=== PATIENT | female | born 1985 | race African-American/Black ===

== ENCOUNTER 2023-10-18 08:32 | Outpatient (REF) | payer MEDICARE, MEDICAID, SELFPAY ==
--- NOTE | 2023-10-18 08:42 | ECG_ITS ---
Test Reason : med management Blood Pressure : / mmHG Vent. Rate : 086 BPM Atrial Rate : 086 BPM P-R Int : 160 ms QRS Dur : 080 ms QT Int : 376 ms P-R-T Axes : 054 015 020 degrees QTc Int : 449 ms Normal sinus rhythm Normal ECG No previous ECGs available Referred By: Karis Gross Electronically Signed By:TONI QURESHI MD
[2023-10-18 09:04] LABS: Basophils Percent Auto 0.5 % (0-2); Eosinophils Absolute Auto 0.1 X10*3/uL (0.0-0.4); Eosinophils Percent Auto 1.3 % (0-4); Hematocrit 39.3 % (37.0-47.0); Hemoglobin 13.6 g/dl (12.0-16.0); Imm Gran Abs Auto 0.01 X10*3/uL (0.00-0.03); Imm Gran Pct Auto 0.1 % (0.0-0.4); Lymphocytes Absolute Auto 5.1 X10*3/uL (1.2-4.9); Lymphocytes Percent Auto 65.3 % (20-40); MANUAL DIFF FLAG SCAN; Mean Corpuscular HGB Conc 34.6 g/dl (31.0-35.0); Mean Corpuscular Hemoglobin 32.1 pg (27.0-33.0); Mean Corpuscular Volume 92.7 fL (80.0-98.0); Mean Platelet Volume 10.6 fL (9.4-12.3); Monocytes Absolute Auto 0.6 X10*3/uL (0.1-1.2); Neutrophils Absolute Auto 1.9 x10*3/uL (2.0-8.3); Neutrophils Percent Auto 24.8 % (45-73); Platelet Count 230 X10*3/uL (160-400); Red Blood Count 4.24 X10*6/uL (4.20-5.50); Red Cell Distribution Width 11.9 % (11.0-16.0); SCAN SMEAR FLAG 1; White Blood Count 7.8 X10*3/uL (4.8-10.8)
[2023-10-18 09:22] LABS: Estimated Average Glucose 128 mg/dL; Hemoglobin A1C 151.1694 umol/L; Hemoglobin A1c % 6.1 % (<6.0)
[2023-10-18 09:42] LABS: Alanine Aminotransferase 48 U/L (0-31); Albumin Level 4.1 g/dL (3.5-5.0); Alkaline Phosphatase 42 U/L (39-117); Anion Gap 12 (12-20); Aspartate Amino Transferase 32 U/L (5-31); Bilirubin Total 0.3 mg/dL (0.0-1.0); Blood Urea Nitrogen 13 mg/dL (9-16); Calcium 9.4 mg/dL (8.4-10.2); Carbon Dioxide 25 mmol/L (22-29); Chloride 102 mmol/L (96-108); Cholesterol 182 mg/dL (<200); Estimated Glomerular Filt Rate > 60; Glucose Fasting 130 mg/dL (60-99); HDL Cholesterol 46 mg/dL (>40); LDL Cholesterol Calculated 124 mg/dL (<100); Magnesium 1.8 mg/dL (1.6-2.6); Potassium 4.2 mmol/L (3.3-5.1); Sodium 135 mmol/L (135-145); Total Protein 7.6 g/dL (6.5-8.0); Triglycerides 62 mg/dL (<150)
[2023-10-18 09:47] LABS: SLIDE REVIEW VERIFIED
[2023-10-18 09:56] LABS: Thyroid Stimulating Hormone 1.42 uIU/mL (0.32-4.0)
[2023-10-18 09:57] LABS: Free T4 (Free Thyroxine) 0.82 ng/dL (0.71-1.85); Vitamin D 25-OH Total 12.7 ng/mL (>30)
[2023-10-18 10:08] LABS: Vitamin B12 361 pg/mL (200-900)
[2023-10-18 11:27] LABS: UPreg QC Valid YES; Urine Pregnancy NEGATIVE (NEGATIVE)
== END 2023-10-18 08:33 | disposition home or self-care (01) ==
LOC: HO.LAB 08:32
PROVIDERS: Visit Provider Psychiatry & Neurology Psychiatry
DX: F32.9 Major depressive disorder, single episode, unspecified (principal); Z51.81 Encounter for therapeutic drug level monitoring; Z79.899 Other long term (current) drug therapy
CPT/HCPCS: 36415; 80053; 80061; 81025; 82306; 82607; 83036; 83735; 84100; 84439; 84443; 85025; 93005

== ENCOUNTER → 2023-10-18 08:42 | Outpatient (BNV) | payer MEDICARE, MEDICAID, SELFPAY | PROVIDERS: Visit Provider Internal Medicine Cardiovascular Disease | DX: Z51.81 Encounter for therapeutic drug level monitoring (principal) | CPT/HCPCS: 93010 ==

== ENCOUNTER → 2023-10-22 11:30 | Outpatient (BNV) | payer MEDICARE, MEDICAID, SELFPAY | PROVIDERS: Visit Provider Psychiatry & Neurology Psychiatry | DX: F42.9 Obsessive-compulsive disorder, unspecified (principal); F45.21 Hypochondriasis; F31.81 Bipolar II disorder; F43.10 Post-traumatic stress disorder, unspecified; F17.200 Nicotine dependence, unspecified, uncomplicated; F10.21 Alcohol dependence, in remission | CPT/HCPCS: 90792; 99211; 99213; 99214; 99499 ==

== ENCOUNTER 2023-11-13 12:00 | Outpatient (RCR) | payer MEDICARE, MEDICAID, SELFPAY ==
[2023-10-17 11:31] VITALS: BP 100/60; PULSE 76; TEMP 37.1
[2023-10-17 13:41] VITALS: BMI 45.0
--- NOTE | 2023-10-17 15:30 | PC.ADMIT ---
Patient is a 37 year old female who was referred to [facility] by [facility] where she stayed for 4 days. Patient reports struggling with severe anxiety with panic attacks, and a long history of ETOH use . Per Integrative Assessment patient has 2 children ages 6 and 7. After having her last child she struggled with depression and at that time had thoughts to jump off a bridge and hurt her children however did not follow through. She denied these thoughts currently. Patient reports she is feeling overwhelmed and struggles with negative thinking and obsessive thoughts. She is alert and oriented x4. Calm and cooperative. Denied SI, HI. Reports some paranoid thoughts that something bad is going to happen or she has cancer or is going to . Patient given a copy of her safety plan if needed. Medications reconciled with patient and patient's pharmacy.
--- NOTE | 2023-10-17 15:57 | HO.PHP ---
Client's case has been opened and reviewed in treatment team.
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
--- NOTE | 2023-10-18 21:53 | HO.PHPPROGNO ---
Subjective Subjective Date of Service: 10/18/23 Reason For Visit: PTSD,anxiety Interim History: Patient seen upon for follow-up on new medications. Patient reports ongoing anxiety, obsessive worry about a multitude of non-specific physical symptoms being potentially serious conditions as well as anticipatory anxiety about potentially developing side effects from medication. She took 100 mg capsule of gabapentin yesterday evening. Says it caused her to feel activated, acutely anxious but was able to recall that we had discussed that this was likely given she was starting on a new medication. She reporteldy took another 100 mg today, and seemed to better tolerate it feels she is a little less anxious than she would have expected to be at the program today. She has not yet started on the propranolol. She notes thinking a lot today...having a lot of different types of thoughts . It's unclear if she is feeling activated from the medication, but more likely she may have felt overstimulated in the program. Hopefully she will settle and be able to tolerate the anticipatory anxiety of starting on a new medication (or at least until the dose is felt to be effective). She denies any alcohol or substance use. Denies urges or cravings. Mood remains depressed, with anxiety all the time . Denies any thoughts of harming self or others. She reports getting her EKG and lab work done earlier this morning. Pending results, will review. She was encouraged to continue with slow titration of PRN as tolerated given obsessive concerns and anticipatory anxiety about potential medication side effects. we are starting at very low doses of gabapentin and propranolol to help better manage panic symptoms, especially since Lamictal will not be therapeutic for several weeks. Patient is aware. For now we will continue lamotrigine titration, pt encouraged to utilize PRN medication. Patient is considering augmentation with NL mood stabilizer, but has considerable apprehension about starting new medications given history of acute dystonia on Latuda. Medication Compliance: Intermittent Side effects from medications: Yes (as noted) Attending Groups: Yes Review of Systems Acute medical concerns: No Mental Status Exam Mental Status Exam Narrative: Alert, oriented, in no acute distress. Casually dressed. No tics, tremors. Cooperative, forthcoming, engaged. Eye contact. Mood anxious. Affect anxious, less labile. Speech normal, talkative without pressured speech. Thought process perseverative without FOI/ANATOLY. Thought content +obsessions relevant to somatic symptoms, health concerns, medication side effects. No SI or HI upon inquiry. No evidence of psychosis. Cognition grossly intact. Sensorium clear. Insight limited, judgment fair but adequate. Diagnostics Vital Signs (24Hr): BMI result Body Mass Index 45.0 Assessment & Plan Assessment & Plan (1) Mood disorder: Status: Acute Code(s): F39 - Unspecified mood [affective] disorder (2) Illness anxiety disorder: Status: Acute Code(s): F45.21 - Hypochondriasis (3) Other specified anxiety disorders: Status: Acute Code(s): F41.8 - Other specified anxiety disorders Assessment and Plan: generalized anxiety, panic attacks, obsessive neurosis r/o OCD spectrum, r/o anxiety related to general medical condition (4) Moderate alcohol use disorder, in early remission: Status: Acute Code(s): F10.21 - Alcohol dependence, in remission (5) PTSD (post-traumatic stress disorder): Status: Acute Code(s): F43.10 - Post-traumatic stress disorder, unspecified Plan continue plan gabapentin 100-200 mg BID propranolol 5-10 mg BID PRN continue lamotrigine titration may consider Abilify, Rexulti or other partial agonist 2nd generation AP to provide more immediate mood stabilziation, given constraints of Lamictal rx (will be at least 8 weeks until therapeutic) other considerations include increasing Lexapro (once mood stabilized) or preferably switching to clomipramine (or fluoxetine, fluvoxamine) or other agent better at targeting obsessive worry Lab work remarkable for HbA1c 6.1, mildly elevated transaminases, vit D deficiency. will start vitamin D weekly supplement Patient educated on: diagnosis, medication risk/benefits and substance abuse Informed Consent: understands Certification I certify that partial hospital treatment is medically necessary due to the symptoms and problems resulting from the patient's mental illness and the failure to treat the patient at the partial hospital level of care would likely result in the patient requiring inpatient psychiatric care which could not be prevented at a less intensive level of care. Total time managing care of this patient today ____ minutes. Discharge Plan Discharge Attending provider: Karis Gross Medications: New gabapentin 100 mg capsule 100 - 200 mg PO BID PRN (Reason: anxiety, agitation) Qty: 30 0RF propranolol 10 mg tablet 10 mg PO BID PRN (Reason: heart racing, anxiety) Qty: 30 0RF lamotrigine 25 mg tablet See Rx Instructions .ROUTE .COMPLEX 30 Days Qty: 80 0RF Rx Instructions: take 2 tablets po daily for 2 weeks, then increase to 3 tablets daily escitalopram oxalate [Lexapro] 10 mg tablet 10 mg PO DAILY 15 Days Qty: 15 0RF ergocalciferol (vitamin D2) [Vitamin D2] 1,250 mcg (50,000 unit) capsule 1,250 mcg PO QWEEK Qty: 10 0RF Continued metformin 500 mg tablet 500 mg PO BID lisinopril-hydrochlorothiazide 20-25 mg tablet 1 tab PO DAILY hydroxyzine HCl 25 mg Tablet 25 mg PO TID PRN (Reason: Anxiety) No Action atorvastatin 20 mg tablet 20 mg PO DAILY thiamine HCl (vitamin B1) [Vitamin B-1] 100 mg Tablet 100 mg PO DAILY lamotrigine 25 mg tablet, chewable dispersible 25 mg PO DAILY folic acid 1 mg Tablet 1 mg PO DAILY pyridoxine (vitamin B6) [Vitamin B-6] 100 mg Tablet 100 mg PO DAILY naproxen 500 mg tablet 500 mg PO BID cholecalciferol (vitamin D3) [Vitamin D3] 25 mcg (1,000 unit) capsule 25 mcg PO DAILY escitalopram oxalate 10 mg tablet 10 mg PO DAILY Stand Alone Forms: Patient Portal Discharge page
--- NOTE | 2023-10-22 21:01 | P.PNPSP_ITS ---
Subjective Subjective Date of Service: 10/22/23 Reason For Visit: PTSD,anxiety Interim History: Patient seen for follow up today. Anticipating discharge tomorrow. Patient reports that her time here was very helpful . She has continued to work part-time while in the program. She will be returning to work [employer] after tomorrow. She reports her mood is good . Denies any depressive symptoms, says her moods are more level, no hopelessness or SI. There hasn't been any episodes of passive SI in over a week. He meets with his outpatient provider monthly, was last seen by provider 2 weeks ago. She reportedly is not needing any refills until then. Her next therapy appointment is next Saturday. Medication Compliance: Yes Side effects from medications: No Attending Groups: Yes Review of Systems Acute medical concerns: No Diagnostics Vital Signs (24Hr): BMI result Body Mass Index 45.0 Assessment & Plan Certification I certify that partial hospital treatment is medically necessary due to the symptoms and problems resulting from the patient's mental illness and the failure to treat the patient at the partial hospital level of care would likely result in the patient requiring inpatient psychiatric care which could not be prevented at a less intensive level of care. Total time managing care of this patient today ____ minutes. Discharge Plan Discharge Attending provider: Karis Gross Medications: New gabapentin 100 mg capsule 100 - 200 mg PO BID PRN (Reason: anxiety, agitation) Qty: 30 0RF propranolol 10 mg tablet 10 mg PO BID PRN (Reason: heart racing, anxiety) Qty: 30 0RF lamotrigine 25 mg tablet See Rx Instructions .ROUTE .COMPLEX 30 Days Qty: 80 0RF Rx Instructions: take 2 tablets po daily for 2 weeks, then increase to 3 tablets daily escitalopram oxalate [Lexapro] 10 mg tablet 10 mg PO DAILY 15 Days Qty: 15 0RF Continued metformin 500 mg tablet 500 mg PO BID lisinopril-hydrochlorothiazide 20-25 mg tablet 1 tab PO DAILY hydroxyzine HCl 25 mg Tablet 25 mg PO TID PRN (Reason: Anxiety) No Action atorvastatin 20 mg tablet 20 mg PO DAILY thiamine HCl (vitamin B1) [Vitamin B-1] 100 mg Tablet 100 mg PO DAILY lamotrigine 25 mg tablet, chewable dispersible 25 mg PO DAILY folic acid 1 mg Tablet 1 mg PO DAILY pyridoxine (vitamin B6) [Vitamin B-6] 100 mg Tablet 100 mg PO DAILY naproxen 500 mg tablet 500 mg PO BID cholecalciferol (vitamin D3) [Vitamin D3] 25 mcg (1,000 unit) capsule 25 mcg PO DAILY escitalopram oxalate 10 mg tablet 10 mg PO DAILY Stand Alone Forms: Patient Portal Discharge page Telehealth Telehealth Location of provider rendering services: other (private office) Location of patient: other ([facility]) Patient Identification confirmed using: Name, : Yes Telehealth method: video Minutes spent on Phone/Video with Pt.: 30
--- NOTE | 2023-10-22 22:05 | P.PNPSP_ITS ---
Subjective Subjective Date of Service: 10/22/23 Reason For Visit: PTSD,anxiety Interim History: Patient requesting to be seen for medication side effects. She reports moving up to Lamictal 50 mg over the weekend, she says she has been questioning herself about whether she can tell if she is having brain fog with the Lamictal at 25 mg. Moving up to 50 mg was making her anxious but she went up on Saturday. She tried taking the gabapentin 100 mg but says it caused her to feel more anxiety. I felt disoriented. I couldn't think, I felt like I was losing my mind. I could feel my heart poudning and pounding... I was about to start screaming . At the time she was on facebook, and says someone tried talking her down to calm down. Upon inquiry she says she is unable to distinguish between the event on Saturday and a panic attack, agrees it is possible it could have been a panic attack given she was experiencing anticipatory anxiety about medications (anticipating any dose change or new medications) however she cold not be reassured. She has not yet tried propranolol due to concerns for her heart even though she says she understands that this should help with some of the anxiety symptoms, specifically heart racing and palpitations. We review her EKG from yesterday which was noted to be completely unremarkable. NSR, VR 89, no abnormalities. She expressed only modest reassurance. Again the propranolol would be helpful and says she will consider trying it this evening. She co ntinued to perseverate on lamotrigine causing brain fog and gabapentin interacting with the Lamictal. She says she is terrified to experience this event again. We discuss her history of panic attacks and that they are chronic and pervasive and likely to continue unless adequately treated. We discuss diagnostically her obsessive anxiety tendencies toward hypochondriasis overlapping with obsessive-compulsive spectrum type disorder. She seems to fully appreciate this construct as descriptive about her experience. We agree to take a slower, lomy-aq-moth approach to medication changes, simplify treatment. Patient is unlikely a good candidate for Lamictal, seeing as she will essentially remain untreated for several weeks/months until dose is therapeutic which will take some time, and unlikely be tolerable given regular dosing increases to get to there. Preferably I would like to start fluvoxamine or clomipramine to target OCD-type obsessive anxiety however she has a history of manic episodes (though not fully appreciated as such given concomiitent alcohol/substance use), nonetheless she has experienced overactivation with increases in her SSRI in the past. Any further increase in Lexapro (vs change to another antidepressant to target obsessive anxiety) would likely warrant proper mood stabilization. This far she is struggling to endure the long titration process for Lamcital, and reportedly has had significant side effects with neuroleptic medications. 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 We reivew her history with Trileptal and seems patient experienced more of the same non- specific panic attack-like symptoms when trialed on Trileptal. She says she was very tired/sedated by the medication, but indicates the dose may have been ?400. We review the Trileptal as a possible mood stabilizer, give we would be starting the dose back at 150 mg, which she seemed open to. She understands there are similar risks with Trileptal as compared to Lamictal, but also appreciates the considerably shorter titration period required for Trileptal to be therapuetic. Medication Compliance: Yes Side effects from medications: No Attending Groups: Yes Review of Systems Acute medical concerns: No Mental Status Exam Mental Status Exam Narrative: Alert, oriented, in no acute distress. Casually dressed in sweats. No tics, tremors. Restless at times, otherwise cooperative, forthcoming. Eye contact. Moo d anxious, affect anxious, labile. Speech mildly pressured but allows for reciprocity. Thought process perseverative without FOI/ANATOLY. Thought content +obsessions relevant to somatic symptoms, health concerns, medication side effects. No SI or HI upon inquiry. No evidence of psychosis. Cognition grossly intact. Sensorium clear. Insight limited, judgment fair but adequate. Diagnostics Vital Signs (24Hr): BMI result Body Mass Index 45.0 Assessment & Plan Assessment & Plan (1) Mood disorder: Status: Acute Code(s): F39 - Unspecified mood [affective] disorder (2) Hypochondriasis: Status: Acute Code(s): F45.21 - Hypochondriasis (3) Generalized anxiety disorder with panic attacks: Status: Acute Code(s): F41.1 - Generalized anxiety disorder; F41.0 - Panic disorder [episodic paroxysmal anxiety] (4) Moderate alcohol use disorder, in early remission: Status: Acute Code(s): F10.21 - Alcohol dependence, in remission Plan will reduce dose of Lamictal to 25 mg/d, plan to taper off, cross titrate onto oxcarbazepine vs ?SGA partial D-agonist/antagonist like Abilify or Rexulti + Cogentin consider further titration w Lexapro (which may be easier) vs TCA specifically clomipramine (or Prozac or Luvox) to target anxiety/OCD sx (clomipramine would be preferred plan however which would take more time and perhaps would further complicate anxiety in the short term) continue to monitor tightly for reassurance and tighter adjustments Patient educated on: diagnosis, medication risk/benefits and substance abuse Informed Consent: understands Certification I certify that partial hospital treatment is medically necessary due to the symptoms and problems resulting from the patient's mental illness and the failure to treat the patient at the partial hospital level of care would likely result in the patient requiring inpatient psychiatric care which could not be prevented at a less intensive level of care. Total time managing care of this patient today _30___ minutes. Discharge Plan Discharge Attending provider: Karis Gross Medications: New gabapentin 100 mg capsule 100 - 200 mg PO BID PRN (Reason: anxiety, agitation) Qty: 30 0RF propranolol 10 mg tablet 10 mg PO BID PRN (Reason: heart racing, anxiety) Qty: 30 0RF lamotrigine 25 mg tablet See Rx Instructions .ROUTE .COMPLEX 30 Days Qty: 80 0RF Rx Instructions: take 2 tablets po daily for 2 weeks, then increase to 3 tablets daily escitalopram oxalate [Lexapro] 10 mg tablet 10 mg PO DAILY 15 Days Qty: 15 0RF Continued metformin 500 mg tablet 500 mg PO BID lisinopril-hydrochlorothiazide 20-25 mg tablet 1 tab PO DAILY hydroxyzine HCl 25 mg Tablet 25 mg PO TID PRN (Reason: Anxiety) No Action atorvastatin 20 mg tablet 20 mg PO DAILY thiamine HCl (vitamin B1) [Vitamin B-1] 100 mg Tablet 100 mg PO DAILY lamotrigine 25 mg tablet, chewable dispersible 25 mg PO DAILY folic acid 1 mg Tablet 1 mg PO DAILY pyridoxine (vitamin B6) [Vitamin B-6] 100 mg Tablet 100 mg PO DAILY naproxen 500 mg tablet 500 mg PO BID cholecalciferol (vitamin D3) [Vitamin D3] 25 mcg (1,000 unit) capsule 25 mcg PO DAILY escitalopram oxalate 10 mg tablet 10 mg PO DAILY Stand Alone Forms: Patient Portal Discharge page Telehealth Telehealth Location of provider rendering services: other (private office) Location of patient: other ([facility]) Patient Identification confirmed using: Name, : Yes Telehealth method: video Minutes spent on Phone/Video with Pt.: 30
--- NOTE | 2023-10-23 14:29 | PC.NURSE ---
Kendall asked to have her blood pressure taken as she stated she did not feel right. Feeling the sensation of a band around her head and head feeling foggy. BP 90/60 P 96. She talked about numerous fears including new medications and being scared she is going to get side effects. She talked about feeling fatigued prior to her menses and not feeling herself. She is with much negative thinking and worrying about things that have not happened including what if she never gets better, or what if she gets psychosis like she did after her last child was born (hx of post psychosis). We talked about staying in the present moment and grounding techniques. We also talked about taking small steps and slowing down her breathing. Reports she did not have a good day on Saturday however stated she has had some good days since being in the program. She plans on visiting with her mom with her children after the program. She reports feeling better after we talked and physical symptoms that she was experiencing prior to seeing me have gone away. She plans on coming to the program tomorrow. Encouraged Kendall to increase her fluid intake.
[2023-10-23 14:45] VITALS: BP 90/60; PULSE 96
[2023-10-24 09:30] VITALS: BP 106/62; PULSE 80
--- NOTE | 2023-10-24 09:30 | PC.NURSE ---
Getarra feeling less anxious this morning. Practicing staying in the present moment which has been helpful . VS BP 106/62 P 80.
--- NOTE | 2023-10-24 20:55 | P.PNPSP_ITS ---
Subjective Subjective Date of Service: 10/24/23 Reason For Visit: PTSD,anxiety Interim History: Patient was seen for follow-up to discuss treatment. Since we decided to hold off from further medication changes last visit and monitor her anxiety without provocation from med changes, patient says she in fact has continued to experience similar somatic symptoms as she had been experiencing when starting on the gabapentin 100 mg, and also when dose of lamictal was increased to 50 mg. She was able to acknowledge perhaps it was her anxiety after all that was causing the symptoms (which were consistent with panic sx bordering on hysteria) which she had been mistakenly attributed to the medications. She continues to relay a considerable amount of anticipatory anxiety about starting on a mood stabilizer, however she has some insight into the nature of her anxiety and hx of mood dysregulation and need for adequate mood stabilization. Despite her apprehension and obsessiveness, she was able to engage effectively with treatment decisions. Her case is complicated by a history of dystonia reported on Latuda. She is uncertain of the dose on the Latuda. Inteerstingly she has been treated on paliperidone and risperidone and did not experience any dystonia or other extrapyramindal symptoms as she can recall. (mostly just concerns for weight gain). We had discussed oxcarbazepine as an option given patient's initial reseervations about revisiting a neuroleptic mood stabilizer, however she agreed to this given concerns about BID dosing with Trileptal potentiating more anxiety, and prefered the once daily dosing of Abilify. More over it would likely be more helpful in targeting intrusive thoughts and obsessions than the Trileptal. For added reassurance, I have filed a script of Balwinder which she could take PRN for any signs of neck/jaw/upper axial stiffness and seemed relieved to have this option. Abilify being a partial dopamine agonist should have a better side effect profile as compared to other medications from that class in potentially provoking a dystonic reaction. She denies any thoughts of harming self or others. She denies any alcohol cravings or urges. Denies any interim = or substance use. Medication Compliance: Yes Side effects from medications: No Attending Groups: Yes Review of Systems Acute medical concerns: No Mental Status Exam Mental Status Exam Narrative: Alert, oriented, in no acute distress. Groomed. Calmer today, restless at times, otherwise cooperative, forthcoming. Eye contact. Mood anxious, affect anxious, less labile. Speech appropriate. Thought process perseverative without FOI/ANATOLY. Thought content +obsessions relevant to somatic symptoms, health concerns, medication side effects. No SI or HI upon inquiry. No evidence of psychosis. Cognition grossly intact. Sensorium clear. Insight limited, judgment fair but adequate. Diagnostics Vital Signs (24Hr): Vital Signs - 24 hr 10/24/23 09:30 Pulse Rate 80 Blood Pressure 106/62 BMI result Body Mass Index 45.0 Assessment & Plan Assessment & Plan (1) Mood disorder: Status: Acute Code(s): F39 - Unspecified mood [affective] disorder (2) Illness anxiety disorder: Status: Acute Code(s): F45.21 - Hypochondriasis (3) Other specified anxiety disorders: Status: Acute Code(s): F41.8 - Other specified anxiety disorders Assessment and Plan: somatic anxiety symptoms, anxiety attacks, generalized anxiety, obsessive neurosis, r/o OCD spectrum (4) Moderate alcohol use disorder, in early remission: Status: Acute Code(s): F10.21 - Alcohol dependence, in remission (5) PTSD (post-traumatic stress disorder): Status: Acute Code(s): F43.10 - Post-traumatic stress disorder, unspecified Plan start Abilify 2 mg qd (may start at 1/2 tablet) will order Cogentin 1 mg qd prn EPS/dystonia (given patient's reported hx and concerns re potential NL side effects) plan to taper off Lamictal (given pt's condition, she is not good candidate for Lamictal due to prolonged titration period when medication is essentially subtherapeutic. at risk for discont/non-compliance due to anxiety related to multiple dose adjustments) continue Lexapro 10 mg qd for now (will either increase dose to 20 mg or consider switching to a more appropriate option such as trial of clomipramine may be more effective, but may not be practical at this point in time, given time constraints of program, and patient limitations in terms of anxiety tolera nce if we make too many med adjustments) Patient educated on: diagnosis, medication risk/benefits and substance abuse Informed Consent: understands Reason for contiued partial hosp. stay Substantial Risk for: inability to function, rapid decompensation and med/psych decompensation Certification I certify that partial hospital treatment is medically necessary due to the symptoms and problems resulting from the patient's mental illness and the failure to treat the patient at the partial hospital level of care would likely result in the patient requiring inpatient psychiatric care which could not be prevented at a less intensive level of care. Total time managing care of this patient today __30__ minutes. Discharge Plan Discharge Attending provider: Karis Gross Medications: New escitalopram oxalate [Lexapro] 10 mg tablet 10 mg PO DAILY 15 Days Qty: 15 0RF ergocalciferol (vitamin D2) [Vitamin D2] 1,250 mcg (50,000 unit) capsule 1,250 mcg PO QWEEK Qty: 10 0RF aripiprazole 2 mg tablet 2 mg PO BEDTIME Qty: 14 0RF benztropine 1 mg tablet 1 mg PO DAILY PRN (Reason: stiffness) Qty: 30 0RF Rx Instructions: as directed Continued metformin 500 mg tablet 500 mg PO BID lisinopril-hydrochlorothiazide 20-25 mg tablet 1 tab PO DAILY hydroxyzine HCl 25 mg Tablet 25 mg PO TID PRN (Reason: Anxiety) Discontinued lamotrigine 25 mg tablet, chewable dispersible 25 mg PO DAILY No Action atorvastatin 20 mg tablet 20 mg PO DAILY thiamine HCl (vitamin B1) [Vitamin B-1] 100 mg Tablet 100 mg PO DAILY folic acid 1 mg Tablet 1 mg PO DAILY pyridoxine (vitamin B6) [Vitamin B-6] 100 mg Tablet 100 mg PO DAILY naproxen 500 mg tablet 500 mg PO BID cholecalciferol (vitamin D3) [Vitamin D3] 25 mcg (1,000 unit) capsule 25 mcg PO DAILY escitalopram oxalate 10 mg tablet 10 mg PO DAILY Stand Alone Forms: Patient Portal Discharge page
--- NOTE | 2023-10-29 09:29 | PC.NURSE ---
Kendall called and stated she would not be at the program today as she has an appointment today for her children. She stated she will be here tomorrow.
--- NOTE | 2023-10-31 16:09 | HO.PHP ---
Financial Reporting Manager met with pt to discuss discharge plan, Kendall expressed anxiety in regards to new symptom of lightheaded upon standing. Afraid it is due to the medication. Pt reported she had a decrease in anxiety and panic attacks this week but the lightheadedness has cause an increase in her anxious fear and has induced panic attacks again. Pt's speech is pressured, difficulty staying focused on the conversation, responding to the worries and anxiety she is ruminating on instead of the questions. Pt did well when educated and reminded of her knowledge, her skills and to stay present. Pt able to redirect and calm with support. Pt expressed interest in the [employer], for added support after post PHP. Information provided. Pt states she will call this week to enroll. Financial Reporting Manager and pt discussed her scheduled discharge date set for tomorrow. Pt feel she needs more time, teletypewriter operator agrees. Pt's concern's and treatment plan discussed in team. Pt's time will be extended until next week.
--- NOTE | 2023-11-01 19:54 | PM.EVENT ---
Event Note Date of Service: 11/01/23 Event Note: Patient was scheduled to see short story writer this past Sunday 10/29 but called out of the program for an appointment, and was unable to be seen. She was scheduled to be seen today 11/01, but again called out sick this morning and was unable to be seen. Time Spent With Patient Time: Total time managing care of this patient today ____ minutes.
--- NOTE | 2023-11-04 20:09 | HO.PHPPROGNO ---
Subjective Subjective Date of Service: 11/04/23 Reason For Visit: PTSD,anxiety Interim History: Patient was able to tolerate increase in dose of ABilify. Still causes considerable anticipatory anxiety with each med change/increase, however she feels perhaps the anxiety is starting to let up a bit because it did not elicit a panic attack, only minimal panic symptoms which she is starting to appreciate as being in fact stemming from her own anxiety, rather than misinterpreting these symptoms and misattributing them to the medication. She says she was able to tolerate these thoughts and foudn she felt okay. In fact she feels a little more optimistic but is still quite obsessive and preoccupied with somatic symptoms and potential side effects. She did not take the propranolol, even though she understood it was to help with racing heart rate. For now she says she will hold off from taking it until she is experiencing palpitations. She shares more detail and in-depth history of intrusive thoughts and obsessions that are highly dystonic in nature, obsessional morbid ruminations which she experienced very prominently peripartum with intrusive thoughts of harming the baby. These thoughts were very distressing and says in fact she was phobic about harm befalling the baby and started to get internalized into intrusive thought process. She gave many other examples of struggles with ego-dystonic obsessional thoughts, no clear ritualistic behavior aside from seeking reassurance from others, which only briefly and temporarily relieves concerns. She reports mood as anxious, denies any manic symptoms, some residual depressive symptoms. Denies any SI ro HI. She returns to discussion about her heart, and why her heart races upon standing, which by all descriptions sounds like normal physiological response to positional change. I explained this mechanism which provided some reassurance. We reviewed definition and symptoms of hypochondriasis and obsessive-type OCD. She strongly agrees with this diagnostic construct and explanation for her internal experience /MH struggles. We discussed natrexone for alcohol recovery, patient denies having any cravings at this time We discussed smoking cessation, patient considering reducing nicotine use Medication Compliance: Yes Side effects from medications: No Attending Groups: Yes Review of Systems Acute medical concerns: No Mental Status Exam Mental Status Exam Narrative: Alert, oriented, in no acute distress. Groomed. Calmer today, restless at times, otherwise cooperative, forthcoming. Eye contact. Mood anxious, affect anxious, less labile. Speech appropriate. Thought process perseverative without FOI/ANATOLY. Thought content +obsessions relevant to somatic symptoms, health concerns, medication side effects. No SI or HI upon inquiry. No evidence of psychosis. Cognition grossly intact. Sensorium clear. Insight limited, judgment fair but adequate. Diagnostics Vital Signs (24Hr): BMI result Body Mass Index 45.0 Assessment & Plan Assessment & Plan (1) Other obsessive-compulsive disorder: Status: Acute Code(s): F42.8 - Other obsessive-compulsive disorder Assessment and Plan: F42.0 Predominently obsessional thoughts or ruminations (2) Illness anxiety disorder: Status: Acute Code(s): F45.21 - Hypochondriasis (3) Mood disorder: Status: Acute Code(s): F39 - Unspecified mood [affective] disorder (4) Other specified anxiety disorders: Status: Acute Code(s): F41.8 - Other specified anxiety disorders Assessment and Plan: obsessive neurosis, somatic anxiety symptoms, panic attacks, generalized anxiety (5) Moderate alcohol use disorder, in early remission: Status: Acute Code(s): F10.21 - Alcohol dependence, in remission (6) Nicotine dependence with current use: Status: Acute Code(s): F17.200 - Nicotine dependence, unspecified, uncomplicated Plan continue Abilify 4 mg/d, will increase to 5 mg tomorrow encouraged patient to take propranolol 10 mg BID (reluctant but is working up to it ) continue Cogentin 1 mg qd PRN EPS sx (patient taking regularly) continue Lexapro 10 mg qd will plan to switch off Lexparo and onto Luvox (once ABilify at 5- 7 mg) to target OCD, other considerations include: TCA/clomipramine - pt declined due to cardiac concerns; Prozac - drug-drug interactions between Abililfy and Prozac increase metformin to 500 mg BID (perhaps will hold off until patient settles on Abilify and med change to Luvox follow-up later in week Patient educated on: diagnosis, medication risk/benefits and substance abuse (nicotine use, alcohol) Informed Consent: understands Certification I certify that partial hospital treatment is medically necessary due to the symptoms and problems resulting from the patient's mental illness and the failure to treat the patient at the partial hospital level of care would likely result in the patient requiring inpatient psychiatric care which could not be prevented at a less intensive level of care. Total time managing care of this patient today ____ minutes. Discharge Plan Discharge Attending provider: Karis Gross Medications: New escitalopram oxalate [Lexapro] 10 mg tablet 10 mg PO DAILY 15 Days Qty: 15 0RF ergocalciferol (vitamin D2) [Vitamin D2] 1,250 mcg (50,000 unit) capsule 1,250 mcg PO QWEEK Qty: 10 0RF benztropine 1 mg tablet 1 mg PO DAILY PRN (Reason: stiffness) Qty: 30 0RF Rx Instructions: as directed aripiprazole 5 mg tablet 5 mg PO BEDTIME 14 Days Qty: 14 0RF benztropine 1 mg tablet 1 mg PO .QHS Qty: 30 0RF escitalopram oxalate 10 mg tablet 10 mg PO DAILY Qty: 20 0RF Continued metformin 500 mg tablet 500 mg PO BID lisinopril-hydrochlorothiazide 20-25 mg tablet 1 tab PO DAILY hydroxyzine HCl 25 mg Tablet 25 mg PO TID PRN (Reason: Anxiety) aripiprazole 2 mg tablet 2 mg PO BEDTIME Qty: 14 0RF Discontinued lamotrigine 25 mg tablet, chewable dispersible 25 mg PO DAILY No Action atorvastatin 20 mg tablet 20 mg PO DAILY thiamine HCl (vitamin B1) [Vitamin B-1] 100 mg Tablet 100 mg PO DAILY folic acid 1 mg Tablet 1 mg PO DAILY pyridoxine (vitamin B6) [Vitamin B-6] 100 mg Tablet 100 mg PO DAILY naproxen 500 mg tablet 500 mg PO BID cholecalciferol (vitamin D3) [Vitamin D3] 25 mcg (1,000 unit) capsule 25 mcg PO DAILY escitalopram oxalate 10 mg tablet 10 mg PO DAILY Stand Alone Forms: Patient Portal Discharge page
[2023-11-08 15:58] VITALS: BP 118/72; PULSE 80
--- NOTE | 2023-11-08 15:59 | PC.NURSE ---
VS assessed per request by
--- NOTE | 2023-11-08 23:48 | P.PNPSP_ITS ---
Subjective Subjective Date of Service: 11/08/23 Reason For Visit: PTSD,anxiety Interim History: Continues to be preoccupied with somatic complaints which continues to trigger catastrophic thinking and anxiety attacks. Insight has improved, as patient is catching her obsessive thought patterns (and starting to question/reality check) but admits it is difficult to talk down the irrational thoughts. Constantly evaluating how she is feeling physically. Continues to misinterpret physiologi arden processes as indication of something being seriously wrong. (eg she got lightheaded when getting up to join me today, she notes that after I called for her and she got up from her seat, she felt her pulse increase after she stood up, and now she is worried something is wrong with her heart, and also started breathing faster). She was noted to be more redirectable, but still admits she can't shake the feeling something was really wrong. Continues with racing thoughts, obsessions around safety, (medical, environmental) feels exhausted all the time on account of constantly thinking and obsessing. No rituals but is habituated to double-checking on concerns in the environment, constantly checking her pulse. There are times she can't feel her pulse and feels like she is going to freak out and panic. Am I , am I ?! She has difficulty addressing food in the fridge if it has been there too long. Does not want to waste food, especially since has not passed expiration dates yet, but then questions if it is getting too close to expiration date, fears of poisoning herself if the food spoils early. Will end up having to get rid of a lot of food because she vacillates for too long and then expiration date passes. She denies any alcohol use or substance use except nicotine, which she appreciates also contributes to racing heart. We discuss some options and says she will consider working on this. She denies any alcohol cravings. In fact she does not want to drink anymore because of liver labs (only mildly elevated). Medication Compliance: Yes Side effects from medications: No Attending Groups: Yes Review of Systems Acute medical concerns: No Mental Status Exam Mental Status Exam Narrative: Alert, oriented, in no acute distress. Groomed. Restless at times, overall calmer, cooperative, forthcoming. Eye contact. Mood anxious, affect less anxious, no lability or irritability noted. Speech appropriate. Thought process perseverative without FOI/ANATOLY. Thought content +obsessive, relevant to somatic symptoms, health concerns, medication side effects. No SI or HI upon inquiry. No evidence of psychosis. Cognition grossly intact. Sensorium clear. Insight limited, judgment fair but adequate. Diagnostics Vital Signs (24Hr): Vital Signs - 24 hr 11/08/23 15:58 Pulse Rate 80 Blood Pressure 118/72 BMI result Body Mass Index 45.0 Assessment & Plan Assessment & Plan (1) Other obsessive-compulsive disorder: Status: Acute Code(s): F42.8 - Other obsessive-compulsive disorder (2) Illness anxiety disorder: Status: Acute Code(s): F45.21 - Hypochondriasis (3) Mood disorder: Status: Acute Code(s): F39 - Unspecified mood [affective] disorder Assessment and Plan: Bipolar affective disorder, unspecified (4) PTSD (post-traumatic stress disorder): Status: Acute Code(s): F43.10 - Post-traumatic stress disorder, unspecified (5) Other specified anxiety disorders: Status: Acute Code(s): F41.8 - Other specified anxiety disorders (6) Moderate alcohol use disorder, in early remission: Status: Acute Code(s): F10.21 - Alcohol dependence, in remission (7) Nicotine dependence with current use: Status: Acute Code(s): F17.200 - Nicotine dependence, unspecified, uncomplicated Plan decrease escitalopram to 5 mg qd start fluvoxamine (Luvox) at 25 mg qhs x 2 days, then increase to 50 mg qhs continue Abilify 5 mg qd continue benztropine 1 mg qd PRN s/s EPS (low risk w Abilify, however pt reports hx of acute dystonic reaction on Latuda) encouraged to cut down/eliminate nicotine use (which is likely exacerbating somatic sx) options for alcohol and nicotine cessation considered (naltrexone, nicotine patch) but pt still struggling with obsessive neuroses and may be too diffciult to start other medications until OCD is better treated continue to monitor Patient educated on: diagnosis, medication risk/benefits and substance abuse Informed Consent: understands Reason for contiued partial hosp. stay Substantial Risk for: inability to function and med/psych decompensation Certification I certify that partial hospital treatment is medically necessary due to the symptoms and problems resulting from the patient's mental illness and the failure to treat the patient at the partial hospital level of care would likely result in the patient requiring inpatient psychiatric care which could not be prevented at a less intensive level of care. Total time managing care of this patient today __30__ minutes. Discharge Plan Discharge Attending provider: Karis Gross Medications: New escitalopram oxalate [Lexapro] 10 mg tablet 10 mg PO DAILY 15 Days Qty: 15 0RF ergocalciferol (vitamin D2) [Vitamin D2] 1,250 mcg (50,000 unit) capsule 1,250 mcg PO QWEEK Qty: 10 0RF benztropine 1 mg tablet 1 mg PO DAILY PRN (Reason: stiffness) Qty: 30 0RF Rx Instructions: as directed aripiprazole 5 mg tablet 5 mg PO BEDTIME 14 Days Qty: 14 0RF benztropine 1 mg tablet 1 mg PO .QHS Qty: 30 0RF escitalopram oxalate 10 mg tablet 10 mg PO DAILY Qty: 20 0RF fluvoxamine 25 mg tablet 25 mg PO BEDTIME Qty: 30 0RF Continued metformin 500 mg tablet 500 mg PO BID lisinopril-hydrochlorothiazide 20-25 mg tablet 1 tab PO DAILY hydroxyzine HCl 25 mg Tablet 25 mg PO TID PRN (Reason: Anxiety) aripiprazole 2 mg tablet 2 mg PO BEDTIME Qty: 14 0RF Discontinued lamotrigine 25 mg tablet, chewable dispersible 25 mg PO DAILY No Action atorvastatin 20 mg tablet 20 mg PO DAILY thiamine HCl (vitamin B1) [Vitamin B-1] 100 mg Tablet 100 mg PO DAILY folic acid 1 mg Tablet 1 mg PO DAILY pyridoxine (vitamin B6) [Vitamin B-6] 100 mg Tablet 100 mg PO DAILY naproxen 500 mg tablet 500 mg PO BID cholecalciferol (vitamin D3) [Vitamin D3] 25 mcg (1,000 unit) capsule 25 mcg PO DAILY escitalopram oxalate 10 mg tablet 10 mg PO DAILY Stand Alone Forms: Patient Portal Discharge page
--- NOTE | 2023-11-11 15:14 | HO.PHPPROGNO ---
Subjective Subjective Date of Service: 11/11/23 Reason For Visit: PTSD,anxiety Interim History: Continues with intrusive obsessional thoughts, preoccupation with somatic symptoms, still seeking reassurance but is getting better at catching self and trying to disengage from obsessive ruminations. [facility], but had imagined waitress accidentally giving her alcohol instead of soda that she couldnt rid her mind of the thought that the soda was actually alcohol, and could not get herself to drink the soda to the point that she had to order bottle water so there would be no chance of a mix up. She continues with food safety concerns, eg throwing out a carton of orange juice after first opening for concerns of contamination if she kept it. She took the fluvoxamine on Sat night but then made the mistake of reading up on fluvoxamine and convinced self that provider had mistakenly ordered the wrong medications (ie ordering the TCA instead of SSRI (pt aware tca comes with more cardiac risks). Became acutely aware of heart rate and was concerned the med messed up her heart rhythym. She did not take the Luvox yesterday, and was able to appreciate that her anxiety persisted nonetheless. She has resolved to start back on today after program. Will plan to take another 25 mg at bedtime. Will plan to start BID dosing tomorrow. She complains of constipation, continues to take hydroxyzine for anxiety regularly which may be contributing. Will send stool softener. Patient encouraged to increase hydration. Mental Status Exam Mental Status Exam Narrative: Alert, oriented, in no acute distress. Groomed. Restless at times, overall calmer, cooperative, forthcoming. Eye contact. Mood anxious, affect less anxious, no lability or irritability noted. Speech appropriate. Thought process perseverative without FOI/ANATOLY. Thought content +obsessive, relevant to somatic symptoms, health concerns, medication side effects. No SI or HI upon inquiry. No evidence of psychosis. Cognition grossly intact. Sensorium clear. Insight limited, judgment fair but adequate. Diagnostics Vital Signs (24Hr): BMI result Body Mass Index 45.0 Assessment & Plan Assessment & Plan (1) Other obsessive-compulsive disorder: Status: Acute Code(s): F42.8 - Other obsessive-compulsive disorder Assessment and Plan: F42.0 Predominantly obsessional thoughts or ruminations (2) Illness anxiety disorder: Status: Acute Code(s): F45.21 - Hypochondriasis (3) Bipolar II disorder in full remission: Status: Acute Code(s): F31.81 - Bipolar II disorder (4) PTSD (post-traumatic stress disorder): Status: Acute Code(s): F43.10 - Post-traumatic stress disorder, unspecified (5) Moderate alcohol use disorder, in early remission: Status: Acute Code(s): F10.21 - Alcohol dependence, in remission Plan continue escitalopram 5 mg qd (plan to taper off) increase fluvoxamine (Luvox) to 50 mg in PM and start 25 mg in AM continue Abilify 5 mg qd continue benztropine 1 mg qd PRN s/s EPS (low risk w Abilify, however pt reports hx of acute dystonic reaction on Latuda) ducolax 5 mg ordered for constipation encouraged to cut down/eliminate nicotine use (which is likely exacerbating somatic sx) options for alcohol and nicotine cessation considered (naltrexone, nicotine patch) but pt still struggling with obsessive neuroses and may be too difficult to start other medications until OCD is better treated continue to monitor Patient educated on: diagnosis, medication risk/benefits and substance abuse Informed Consent: understands Reason for contiued partial hosp. stay Substantial Risk for: inability to function, rapid decompensation and med/psych decompensation Certification I certify that partial hospital treatment is medically necessary due to the symptoms and problems resulting from the patient's mental illness and the failure to treat the patient at the partial hospital level of care would likely result in the patient requiring inpatient psychiatric care which could not be prevented at a less intensive level of care. Total time managing care of this patient today __30__ minutes. Discharge Plan Discharge Attending provider: Karis Gross Medications: New escitalopram oxalate [Lexapro] 10 mg tablet 10 mg PO DAILY 15 Days Qty: 15 0RF ergocalciferol (vitamin D2) [Vitamin D2] 1,250 mcg (50,000 unit) capsule 1,250 mcg PO QWEEK Qty: 10 0RF benztropine 1 mg tablet 1 mg PO DAILY PRN (Reason: stiffness) Qty: 30 0RF Rx Instructions: as directed aripiprazole 5 mg tablet 5 mg PO BEDTIME 14 Days Qty: 14 0RF benztropine 1 mg tablet 1 mg PO .QHS Qty: 30 0RF escitalopram oxalate 10 mg tablet 10 mg PO DAILY Qty: 20 0RF fluvoxamine 25 mg tablet 25 mg PO BEDTIME Qty: 30 0RF bisacodyl [Dulcolax (bisacodyl)] 5 mg tablet,delayed release (DR/EC) 5 - 10 mg PO BEDTIME 5 Days Qty: 10 0RF Rx Instructions: take with full glass of water Continued metformin 500 mg tablet 500 mg PO BID lisinopril-hydrochlorothiazide 20-25 mg tablet 1 tab PO DAILY hydroxyzine HCl 25 mg Tablet 25 mg PO TID PRN (Reason: Anxiety) aripiprazole 2 mg tablet 2 mg PO BEDTIME Qty: 14 0RF Discontinued lamotrigine 25 mg tablet, chewable dispersible 25 mg PO DAILY No Action atorvastatin 20 mg tablet 20 mg PO DAILY thiamine HCl (vitamin B1) [Vitamin B-1] 100 mg Tablet 100 mg PO DAILY folic acid 1 mg Tablet 1 mg PO DAILY pyridoxine (vitamin B6) [Vitamin B-6] 100 mg Tablet 100 mg PO DAILY naproxen 500 mg tablet 500 mg PO BID cholecalciferol (vitamin D3) [Vitamin D3] 25 mcg (1,000 unit) capsule 25 mcg PO DAILY escitalopram oxalate 10 mg tablet 10 mg PO DAILY Stand Alone Forms: Patient Portal Discharge page
--- NOTE | 2023-11-12 22:56 | HO.PHPPROGNO ---
Subjective Subjective Date of Service: 11/12/23 Reason For Visit: PTSD,anxiety Interim History: Telephone call check-in: Spoke with patient who is tolerating medication. Continues with pre-occupation about health and continual bodily scanning, hyperfocused on heart rate changes. Has gained some insight into illness (intrusive obsessions and catastrophic thoughts), makes attempts to reassure self, is sometimes helpful but provides only temporary relief at best. She is aware it may take 3 or 4 week for Luvox to be effective. She reports mood as stable, still experiencing a lot of anxiety but does feel the Abilify has been helpful. She may want to discuss further titration with outpatient provider especially for mood symptoms. She denies any manic symptoms, but I will send an additional 2 mg ABilify to take PRN for agitation or emerging insomnia. She denies any hopelessness or SI. Denies thoughts or harming self or others. Denies HI, AH, VH. Denies any alcohol cravings. She is trying to cut back on nicotine use as she appreciates it effects her heart rate. Patient continues to take benztropine PRN regularly, which is not necessary and in fact was added on for reassurance given patient initial concerns about starting on an antipsychotic mood stabilizer. However ABilify unlikely to cause acute dystonia, on the other hand patient reportedly developed this side effect from Latuda which also is not a usual cause, so benztropine was added on just on a PRN basis just as a precautionary measure. I suggest she return to PRN dosing only, especially given constipation complaints. Patient has not had an opportunity to sampler pickup Ducolax #10 yet from pharmacy. She was encouraged to increase fluid intake, high fiber diet and cut back on PRN hydroxyzine as much as possible or tolerated. If constipation persists, she agrees to follow up with her PCP. Anticipate discharge tomorrow. I will follow-up by phone at the end of the week for any questions or concerns and to check she was able to fill medications at pharmacy without issue. Hand-outs given on OCD diagnosis for patient to review. She is to continue further medication management with outpatient provider. Patient is deemed stable for discharge. Diagnostics Vital Signs (24Hr): BMI result Body Mass Index 45.0 Assessment & Plan Assessment & Plan (1) Obsessive compulsive disorder: Status: Acute Code(s): F42.9 - Obsessive-compulsive disorder, unspecified Assessment and Plan: F42.0 Predominantly obsessional thoughts or ruminations (2) Illness anxiety disorder: Status: Acute Code(s): F45.21 - Hypochondriasis (3) Bipolar II disorder in full remission: Status: Acute Code(s): F31.81 - Bipolar II disorder (4) PTSD (post-traumatic stress disorder): Status: Acute Code(s): F43.10 - Post-traumatic stress disorder, unspecified (5) Nicotine dependence with current use: Status: Acute Code(s): F17.200 - Nicotine dependence, unspecified, uncomplicated (6) Moderate alcohol use disorder, in early remission: Status: Acute Code(s): F10.21 - Alcohol dependence, in remission Plan Will continue fluvoxamine (Luvox) at 25 mg qAM and 50 mg qhs for 4 days then increase to 50 mg BID continue Abilify 5 mg qHS continue Abilify 2 mg qd PRN as directed for agitation, intrusive thoughts continue benztropine 1 mg qhs PRN as directed for s/s EPS (acute dystonia) continue propranolol 10 mg BID PRN somatic anxiety/incr heart rate continue vitamin d2 56187 IU q weekly for 8 weeks continue other regular medications patient no longer taking escitalopram, gabapentin, lamotrigine [facility]charge from [facility] tomorrow Patient educated on: diagnosis, medication risk/benefits and substance abuse Informed Consent: understands Reason for contiued partial hosp. stay Substantial Risk for: stable for discharge Certification I certify that partial hospital treatment is medically necessary due to the symptoms and problems resulting from the patient's mental illness and the failure to treat the patient at the partial hospital level of care would likely result in the patient requiring inpatient psychiatric care which could not be prevented at a less intensive level of care. Total time managing care of this patient today __15__ minutes. Discharge Plan Discharge Attending provider: Karis Gross Medications: New ergocalciferol (vitamin D2) [Vitamin D2] 1,250 mcg (50,000 unit) capsule 1,250 mcg PO QWEEK Qty: 10 0RF benztropine 1 mg tablet 1 mg PO .QHS Qty: 30 0RF bisacodyl [Dulcolax (bisacodyl)] 5 mg tablet,delayed release (DR/EC) 5 - 10 mg PO BEDTIME 5 Days Qty: 10 0RF Rx Instructions: take with full glass of water aripiprazole 5 mg tablet 5 mg PO BEDTIME 30 Days Qty: 30 0RF aripiprazole 2 mg tablet 2 mg PO BEDTIME 30 Days Qty: 30 0RF fluvoxamine 50 mg tablet See Rx Instructions .ROUTE .COMPLEX Qty: 60 0RF Rx Instructions: take 1/2 tablet po QAM and 1 tablet po QHS for one week, then increase to 1 tablet po BID Continued metformin 500 mg tablet 500 mg PO BID atorvastatin 20 mg tablet 20 mg PO DAILY thiamine HCl (vitamin B1) [Vitamin B-1] 100 mg Tablet 100 mg PO DAILY lisinopril-hydrochlorothiazide 20-25 mg tablet 1 tab PO DAILY folic acid 1 mg Tablet 1 mg PO DAILY pyridoxine (vitamin B6) [Vitamin B-6] 100 mg Tablet 100 mg PO DAILY hydroxyzine HCl 25 mg Tablet 25 mg PO TID PRN (Reason: Anxiety) Qty: 30 0RF Held cholecalciferol (vitamin D3) [Vitamin D3] 25 mcg (1,000 unit) capsule 25 mcg PO DAILY Hold Instructions: Resume on 01/27/24. complete weekly vitamin d2 80253 IU, then may restart daily vitamin D3 1000 IU daily Discontinued lamotrigine 25 mg tablet, chewable dispersible 25 mg PO DAILY escitalopram oxalate 10 mg tablet 10 mg PO DAILY No Action naproxen 500 mg tablet 500 mg PO BID Stand Alone Forms: Patient Portal Discharge page Patient Education: Obsessive Compulsive Disorder (DC), Generalized Anxiety Disorder (GEN)
--- NOTE | 2023-11-13 14:07 | PC.NURSE ---
Patient feeling ready for discharge, some anxiety regarding discharge. I reviewed her medications with her and medication education provided. Patient given a copy of her discharge paperwork.
== END 2023-11-13 23:59 | disposition home or self-care (01) ==
LOC: HO.PHPA 12:00
PROVIDERS: Visit Provider Psychiatry & Neurology Psychiatry
DX: F39 Unspecified mood [affective] disorder (principal); F42.2 Mixed obsessional thoughts and acts; F45.21 Hypochondriasis; F31.81 Bipolar II disorder; F43.10 Post-traumatic stress disorder, unspecified; F41.8 Other specified anxiety disorders; F10.21 Alcohol dependence, in remission; F17.200 Nicotine dependence, unspecified, uncomplicated; Z79.899 Other long term (current) drug therapy
CPT/HCPCS: 90791; 90853

== ENCOUNTER 2024-10-19 20:24 | Emergency (ER) | payer MEDICARE, MEDICAID, SELFPAY ==
[2024-10-19 20:40] VITALS: BP 149/93; PULSE 77; RESP 16; TEMP 36.9; O2SAT 100; BMI 63.5
--- NOTE | 2024-10-19 20:44 | ED_ITS ---
HPI - Female Genitourinary General Chief complaint: Urogenital-Female Stated complaint: Pelvic pain/abd pain Time Seen by Provider: 10/19/24 23:49 History of Present Illness ED Provider: Viky BYRD Narrative: The patient is a 38-year-old female who says that a few hours before arrival she developed a sense of suprapubic discomfort accompanied by urinary discomfort and urinary urgency and frequency. She wonders if she might have a UTI. She also says that she has a history of type 2 diabetes and has had multiple episodes of bacterial vaginosis and would like to be checked for that as well. Related Data Home Medications ?Medication ?Instructions ?Recorded ?Confirmed atorvastatin 20 mg tablet 20 mg PO DAILY 10/17/23 10/17/23 cholecalciferol (vitamin D3) 25 25 mcg PO DAILY 10/17/23 10/17/23 mcg (1,000 unit) capsule (Vitamin D3) folic acid 1 mg tablet 1 mg PO DAILY 10/17/23 10/17/23 lisinopril 20 1 tab PO DAILY 10/17/23 10/17/23 mg-hydrochlorothiazide 25 mg tablet metformin 500 mg tablet 500 mg PO BID 10/17/23 10/17/23 naproxen 500 mg tablet 500 mg PO BID 10/17/23 10/17/23 pyridoxine (vitamin B6) 100 mg 100 mg PO DAILY 10/17/23 10/17/23 tablet (Vitamin B-6) thiamine HCl (vitamin B1) 100 mg 100 mg PO DAILY 10/17/23 10/17/23 tablet (Vitamin B-1) Previous Rx's ?Medication ?Instructions ?Recorded ergocalciferol (vitamin D2) 1,250 1,250 mcg PO QWEEK #10 caps 10/23/23 mcg (50,000 unit) capsule (Vitamin D2) benztropine 1 mg tablet 1 mg PO .QHS as directed #30 tabs 11/04/23 bisacodyl 5 mg tablet,delayed 5 - 10 mg (1 - 2 x 5 mg) PO 11/11/23 release (Dulcolax (bisacodyl)) BEDTIME as directed 5 days #10 tabs aripiprazole 2 mg tablet 2 mg PO BEDTIME 30 days #30 tabs 11/12/23 aripiprazole 5 mg tablet 5 mg PO BEDTIME 30 days #30 tabs 11/12/23 fluvoxamine 50 mg tablet See Rx Instructions .Route 11/12/23 .COMPLEX #60 tabs hydroxyzine HCl 25 mg tablet 25 mg PO TID PRN Anxiety #30 tabs 11/12/23 fluconazole 150 mg tablet 150 mg PO Q3D 2 doses #2 tabs 10/20/24 metronidazole 0.75 % (37.5 mg/5 1 appful vaginal DAILY 5 days #70 10/20/24 gram) vaginal gel grams phenazopyridine 200 mg tablet 200 mg PO TID PRN dysuria 6 doses 10/20/24 #6 tabs sulfamethoxazole 800 1 tab PO BID 5 days #10 tabs 10/20/24 mg-trimethoprim 160 mg tablet Allergies Allergy/AdvReac Type Severity Reaction Status Date / Time oxcarbazepine Allergy Unknown Verified 10/19/24 20:41 [From Trileptal] paprika Allergy Vomiting Verified 10/19/24 20:41 lurasidone [From Latuda] AdvReac Dystonia Verified 10/19/24 20:41 Review of Systems 2 Review of Systems: Yes all other systems are reviewed and are negative [facility] Past Medical History Medical History (Updated 10/20/24 @ 12:13 by Chuy Salmon MD) delivery delivered Hyperlipidemia Gout Hypertension Type II diabetes mellitus Social History Social History Household Members: Children Patient Tobacco Use Status: Current everyday Tobacco user Tobacco use type: Cigarette Cigarette Packs Per Day: 10 Years Smoked: 4 years Smoked in Last 30 Days: Yes Use of substances other than those prescribed or required for medical reasons: No Advance Directives: No Advance Directives Information Provided: No Do you have a plan to hurt others: No Plan Patient : No Physical Exam 2 Vital Signs: Vital Signs: Last Vital Signs Temp 98.6 F 10/20/24 01:30 Pulse 78 10/20/24 01:30 Resp 18 10/20/24 01:30 BP 105/59 L 10/20/24 01:30 Pulse Ox 95 10/20/24 01:30 O2 Del Method Room Air 10/20/24 01:30 BMI result Body Mass Index 63.5 Const: Other: the patient is a 38-year-old female with BMI of 63. She is awake and alert, pleasant cooperative. She does not appear in acute distress or seem obviously acutely ill. HEENT: Other: Face is symmetrical. Mucous membranes moist. Eyes: General: appearance normal, both eyes and all related structures Neck: Neck: Yes full ROM Resp: Effort & Inspection: normal respiratory effort Auscultation: clear to auscultation bilaterally Cardio: Rate: regular rate Rhythm: regular rhythm Heart sounds: S1 normal heart sound present and S2 normal heart sound present GI: Other: There is some mild suprapubic tenderness. Otherwise the abdomen is soft and nontender. No particular right lower quadrant or left lower quadrant tenderness. : General: Yes no CVA tenderness Back/Spine/Pelvis: Back: no CVA tenderness Skin: Other: Skin is dry and unremarkable. Neuro: Other: The patient was awake and alert with normal mental status. Cranial nerves are grossly intact. She moves her extremities normally. Gait is steady. Extrem: Other: No calf swelling or asymmetry or tenderness. No peripheral edema. Medications Administered Discontinued Medications Generic Name Dose Route Start Last Admin Trade Name Freq PRN Reason Stop Dose Admin Phenazopyridine HCl 200 mg 10/20/24 01:03 10/20/24 01:24 Phenazopyridine Hcl 200 Mg Tablet PO 10/20/24 01:04 200 mg ONCE ONE Administration Trimethoprim/Sulfamethoxazole 1 tab 10/20/24 01:03 10/20/24 01:25 Sulfamethox/Trimeth 800/160 Tablet PO 10/20/24 01:04 1 tab ONCE ONE Administration Medical Decision Making Medical Decision Making [facility] Narrative: RME: 38-year-old female presents to ED for lower abdominal pelvic pain that she says she lives also reporting dysuria. Patient denies any flank pain fever or chills. Patient denies any vaginal discharge or vaginal bleeding. Labs ordered Physician note: The patient is 38-year-old female who presents with fairly acute onset suprapubic discomfort associated with dysuria. Symptoms began a few hours prior to presentation. Her urine is testing positive for a UTI. Her symptoms seem consistent with UTI. She is not exhibiting any obvious systemic symptoms. She has no CVA percussion tenderness. No fever. No vomiting. I suspect she has UTI. She was started on Bactrim. Patient has a history of type 2 diabetes and also reports a history of frequent episodes of bacterial vaginosis and she requested that she be tested for bacterial vaginosis as well. The patient performed a self swab for bacterial vaginosis and Trichomonas. Additionally she submitted a non clean catch urine sample for GC and chlamydia testing. Since it was not clear how long the results would take for the bacterial vaginosis testing the patient was discharged with a prescription for Bactrim to treat with seemed to be a UTI. The next day I checked on the results of her other testing. Her tests for bacterial vaginosis and for vaginal Stacy are positive. Trichomonas testing is negative. GC and chlamydia are also negative. I called the patient the following day and explained that she had tested positive for bacterial vaginosis and Stacy. She requested that treatment for bacterial vaginosis be done by vaginal applicator rather than pills. I therefore sent an additional prescription for vaginal metronidazole. Additionally I sent a prescription for 2 tablets of fluconazole to be taken on day 1 and on day 3. the patient should follow up with a [facility]. She should return if worse. Lab Data 10/19/24 21:14 10/19/24 21:14 Labs: Lab Results 10/19/24 10/19/24 10/20/24 Range/Units 21:14 21:47 00:40 WBC 11.1 H (4.8-10.8) X10*3/uL RBC 4.54 (4.20-5.50) X10*6/uL Hgb 12.7 (12.0-16.0) g/dl Hct 38.5 (37.0-47.0) % MCV 84.8 (80.0-98.0) fL MCH 28.0 (27.0-33.0) pg MCHC 33.0 (31.0-35.0) g/dl RDW 14.2 (11.0-16.0) % Plt Count 185 (160-400) X10*3/uL MPV 10.5 (9.4-12.3) fL Immature Gran % (Auto) 0.3 (0.0-0.4) % Neut % (Auto) 48.7 (45-73) % Lymph % (Auto) 43.7 H (20-40) % [place] % (Auto) 6.3 (2-11) % Eos % (Auto) 0.7 (0-4) % Baso % (Auto) 0.3 (0-2) % Lymph # (Auto) 4.9 (1.2-4.9) X10*3/uL [place] # (Auto) 0.7 (0.1-1.2) X10*3/uL Eos # (Auto) 0.1 (0.0-0.4) X10*3/uL Baso # (Auto) 0.0 (0.0-0.2) X10*3/uL Abs Immat Gran (auto) 0.03 (0.00-0.03) X10*3/uL Absolute Neuts (auto) 5.4 (2.0-8.3) x10*3/uL Absolute Nucleated RBC 0.000 (0.0-0.012) X10*3/uL Nucleated RBC % (auto) 0.0 (0.0-0.2) /100WBC Smear Tech's Comments VERIFIED Sodium 140 (135-145) mmol/L Potassium 3.9 (3.3-5.1) mmol/L Chloride 101 (96-108) mmol/L Carbon Dioxide 29 (22-29) mmol/L Anion Gap 14 (12-20) BUN 14 (9-16) mg/dL Creatinine 0.95 (0.5-1.4) mg/dL Estim Creat Clear Calc 117.9 Estimated GFR > 60 Random Glucose 109 (60-115) mg/dL Calcium 9.6 (8.4-10.2) mg/dL Total Bilirubin 0.3 (0.0-1.0) mg/dL AST 26 (5-31) U/L ALT 40 H (0-31) U/L Alkaline Phosphatase 63 (39-117) U/L C-Reactive Protein 0.86 H (< or = 0.50) mg/dL Total Protein 7.4 (6.5-8.0) g/dL Albumin 4.1 (3.5-5.0) g/dL Lipase 34 (8-78) U/L Beta HCG, Quant < 2 mIU/mL Urine Color Yellow Urine Appearance Cloudy Urine pH 5.5 (5.0-9.0) Ur Specific [place] >= 1.030 H (1.005-1.025) Urine Protein 100 (2+) H (Neg-Trace) mg/dL Urine Glucose (UA) Negative (Negative) mg/dL Urine Ketones Trace (Negative) mg/dL Urine Blood Large (3+) H (Negative) Urine Nitrite Negative (Negative) Ur Leukocyte Esterase Small (1+) H (Negative) Urine RBC >20 H (0-2) /HPF Urine WBC >50 H (0-5) /HPF Ur Squamous Epith Cells 6-10 (0-2) /HPF Urine Bacteria 2+ (None Seen) Hyaline Casts 0-2 (0-2) /LPF Urine Test NEGATIVE (NEGATIVE) Chlam trachomat DNA PCR NOT DETECTED (Not Detect.) N.gonorrhoeae DNA (PCR) NOT DETECTED (Not Detect.) T. vaginalis (PCR) NOT DETECTED (Not Detect) Bact vaginosis (PCR) POSITIVE A (Negative) C. krusei/glabrata (PCR) NOT DETECTED (Not Detect) Stacy group (PCR) DETECTED A (Not Detect) Discharge Plan Discharge Clinical Impression: Urinary tract infection, Bacterial vaginosis, Vaginal stacy Patient Disposition: Home, Self-Care Instructions: Urinary Tract Infection in Women (ED) Additional Instructions: You seemed to have a urinary tract infection. You has been started on an antibiotic, sulfamethoxazole-trimethoprim (also known as Bactrim). Please take this antibiotic 2 times a day until done. You have also been prescribed a medication to help reduce the symptoms of your urinary tract infection. This medication is called phenazopyridine. You may take this up to 3 times a day as needed. Drink lot of fluids. Plan on making a follow up appointment with your regular doctor. Call in the morning for an appointment. Thank you may stop taking the amoxicillin that was prescribed by your dentist while you are taking the new antibiotic. Please do your best to try to stop smoking. We will contact you at [phone] if any of your other tests come back abnormal and require attention. Return to the emergency room if you feel significantly worse. Prescriptions: New sulfamethoxazole-trimethoprim 800-160 mg tablet 1 tab PO BID 5 Days Qty: 10 0RF phenazopyridine 200 mg tablet 200 mg PO TID PRN (Reason: dysuria) Qty: 6 0RF metronidazole 0.75 % (37.5mg/5 gram) gel 1 appful vaginal DAILY 5 Days Qty: 70 0RF fluconazole 150 mg tablet 150 mg PO Q3D Qty: 2 0RF Rx Instructions: may repeat second dose 72 hrs after first dose if symptoms persist No Action metformin 500 mg tablet 500 mg PO BID atorvastatin 20 mg tablet 20 mg PO DAILY thiamine HCl (vitamin B1) [Vitamin B-1] 100 mg Tablet 100 mg PO DAILY lisinopril-hydrochlorothiazide 20-25 mg tablet 1 tab PO DAILY folic acid 1 mg Tablet 1 mg PO DAILY pyridoxine (vitamin B6) [Vitamin B-6] 100 mg Tablet 100 mg PO DAILY naproxen 500 mg tablet 500 mg PO BID cholecalciferol (vitamin D3) [Vitamin D3] 25 mcg (1,000 unit) capsule 25 mcg PO DAILY ergocalciferol (vitamin D2) [Vitamin D2] 1,250 mcg (50,000 unit) capsule 1,250 mcg PO QWEEK Qty: 10 0RF benztropine 1 mg tablet 1 mg PO .QHS Qty: 30 0RF bisacodyl [Dulcolax (bisacodyl)] 5 mg tablet,delayed release (DR/EC) 5 - 10 mg PO BEDTIME 5 Days Qty: 10 0RF Rx Instructions: take with full glass of water aripiprazole 5 mg tablet 5 mg PO BEDTIME 30 Days Qty: 30 0RF aripiprazole 2 mg tablet 2 mg PO BEDTIME 30 Days Qty: 30 0RF fluvoxamine 50 mg tablet See Rx Instructions .ROUTE .COMPLEX Qty: 60 0RF Rx Instructions: take 1/2 tablet po QAM and 1 tablet po QHS for one week, then increase to 1 tablet po BID hydroxyzine HCl 25 mg Tablet 25 mg PO TID PRN (Reason: Anxiety) Qty: 30 0RF Referrals: [facility] [Provider Group] (UTI) Interventions: ED Discharge Assessment Last Done: 10/20/24 01:30 Discharge Date/Time: 10/20/24 01:33 Print Language: Japanese
[2024-10-19 21:34] LABS: Basophils Percent Auto 0.3 % (0-2); Hemoglobin 12.7 g/dl (12.0-16.0); PLT CLUMP 1; Red Cell Distribution Width 14.2 % (11.0-16.0); SCAN SMEAR FLAG 1
[2024-10-19 21:36] LABS: Eosinophils Absolute Auto 0.1 X10*3/uL (0.0-0.4); Eosinophils Percent Auto 0.7 % (0-4); Hematocrit 38.5 % (37.0-47.0); Imm Gran Abs Auto 0.03 X10*3/uL (0.00-0.03); Imm Gran Pct Auto 0.3 % (0.0-0.4); Lymphocytes Absolute Auto 4.9 X10*3/uL (1.2-4.9); Lymphocytes Percent Auto 43.7 % (20-40); MANUAL DIFF FLAG SCAN; Mean Corpuscular Volume 84.8 fL (80.0-98.0); Mean Platelet Volume 10.5 fL (9.4-12.3); Monocytes Absolute Auto 0.7 X10*3/uL (0.1-1.2); Monocytes Percent Auto 6.3 % (2-11); Neutrophils Absolute Auto 5.4 x10*3/uL (2.0-8.3); Neutrophils Percent Auto 48.7 % (45-73); Red Blood Count 4.54 X10*6/uL (4.20-5.50)
[2024-10-19 21:38] LABS: Alanine Aminotransferase 40 U/L (0-31); Albumin Level 4.1 g/dL (3.5-5.0); Alkaline Phosphatase 63 U/L (39-117); Anion Gap 14 (12-20); Aspartate Amino Transferase 26 U/L (5-31); Bilirubin Total 0.3 mg/dL (0.0-1.0); Blood Urea Nitrogen 14 mg/dL (9-16); Calcium 9.6 mg/dL (8.4-10.2); Carbon Dioxide 29 mmol/L (22-29); Chloride 101 mmol/L (96-108); Creatinine Clr Calc Pharmacy 117.9; Estimated Glomerular Filt Rate > 60; Glucose Random 109 mg/dL (60-115); Potassium 3.9 mmol/L (3.3-5.1); Sodium 140 mmol/L (135-145); Total Protein 7.4 g/dL (6.5-8.0)
[2024-10-19 21:56] LABS: Appearance Urine Cloudy; Color Urine Yellow; Glucose Urine UA Negative (Negative); Leukocyte Esterase Urine Small (1+) (Negative); Nitrite Urine Negative (Negative); PH 5.5 (5.0-9.0); Specific Gravity - Urine >= 1.030 (1.005-1.025); UMIC TRIGGER UACC YES; Urine Blood Large (3+) (Negative); Urine Ketones Trace mg/dL (Negative); Urine Protein 100 (2+) mg/dL (Neg-Trace)
[2024-10-19 21:58] LABS: White Blood Count 11.1 X10*3/uL (4.8-10.8)
[2024-10-19 21:58] LABS: Bacteria Urine 2+ (None Seen); Hyaline Casts Urine 0-2 /LPF (0-2); RBC Urine >20 /HPF (0-2); UACC Culture Trigger YES; WBC Urine >50 /HPF (0-5)
[2024-10-19 21:59] LABS: Platelet Count 185 X10*3/uL (160-400)
[2024-10-19 22:00] LABS: SLIDE REVIEW VERIFIED
[2024-10-19 22:02] LABS: UPreg QC Valid YES; Urine Pregnancy NEGATIVE (NEGATIVE)
[2024-10-19 22:16] LABS: HCG Quantitative < 2 mIU/mL
[2024-10-20 00:24] LABS: C Reactive Protein 0.86 mg/dL (< or = 0.50); Lipase 34 U/L (8-78)
[2024-10-20 01:03] VITALS: BP 105/59; PULSE 78; RESP 18; TEMP 37; O2SAT 95
[2024-10-20] MEDS: Phenazopyridine HCL 200 MG TABLET PO (01:24)
[2024-10-20] MEDS: Sulfamethox/Trimeth 800/160 TABLET 1 TAB PO (01:25)
[2024-10-20 01:30] VITALS: BP 105/59; PULSE 78; RESP 18; TEMP 37; O2SAT 95
[2024-10-20 03:24] LABS: CT PCR NOT DETECTED (Not Detect.); NG PCR NOT DETECTED (Not Detect.)
[2024-10-20 11:21] LABS: Bacterial Vaginosis PCR POSITIVE (Negative); Candida Group PCR DETECTED (Not Detect); Candida glab krusei PCR NOT DETECTED (Not Detect); Trichomonas vaginalis PCR NOT DETECTED (Not Detect)
== END 2024-10-20 01:33 | disposition home or self-care (01) ==
PROVIDERS: Physician Assistant; Emergency Provider Emergency Medicine
DX: N39.0 Urinary tract infection, site not specified (principal); B96.20 Unspecified Escherichia coli [E. coli] as the cause of diseases classified elsewhere; N76.0 Acute vaginitis; B37.31 Acute candidiasis of vulva and vagina; R10.2 Pelvic and perineal pain; E11.9 Type 2 diabetes mellitus without complications; I10 Essential (primary) hypertension; E78.5 Hyperlipidemia, unspecified; F17.210 Nicotine dependence, cigarettes, uncomplicated; Z79.84 Long term (current) use of oral hypoglycemic drugs; Z79.02 Long term (current) use of antithrombotics/antiplatelets; Z79.899 Other long term (current) drug therapy
CPT/HCPCS: 0352U; 36415; 80053; 81001; 81025; 83690; 84702; 85025; 86140; 87086; 87088; 87186; 87491; 87591; 99283; 99284

== ENCOUNTER 2025-01-07 00:08 | Emergency (ER) | payer MEDICARE, MEDICAID, SELFPAY ==
--- NOTE | ~2025-01-07 | XR_ITS ---
EXAMINATION: XR CHEST 2 VIEWS HISTORY: R side pain COMPARISON: There are no prior studies for comparison. FINDINGS: PA and lateral views of the chest are submitted. The lungs are expanded and clear. There is no pleural effusion, pneumothorax, or pulmonary vascular congestion. The heart is normal in size. The bones are intact. XR/XR chest 2V IMPRESSION: Normal examination of the chest. Electronically signed by: Marco Rowe MD 01/07/2025 08:00 AM EDT
--- NOTE | ~2025-01-07 | US_ITS ---
EXAMINATION: US ABDOMEN LIMITED CLINICAL INFORMATION: Right upper quadrant abdominal pain. COMPARISON: None available. TECHNIQUE: Real-time imaging of the right upper quadrant abdominal viscera. FINDINGS: PANCREAS: Visualized portions are unremarkable. LIVER: Liver is mildly enlarged, with right hepatic lobe measuring 18.6 cm. The liver contour is normal. There is diffuse increased parenchymal echogenicity. No focal hepatic lesion. There is no intrahepatic biliary duct dilatation seen. GALLBLADDER: The gallbladder is physiologically distended without evidence of stones, sludge, polyps, wall thickening or pericholecystic fluid. Negative sonographic Ja sign. COMMON BILE DUCT: Normal in caliber measuring 0.4 cm in diameter. RIGHT KIDNEY: No hydronephrosis. No renal calculi or focal parenchymal lesions. The kidney measures 11.8 cm in maximum dimension. FREE FLUID: None. US/US abdomen limited IMPRESSION: 1. Mild hepatomegaly with diffusely increased hepatic echogenicity, findings suggestive of fatty infiltration and/or hepatocellular disease. No suspicious lesion. 2. Normal gallbladder and bile ducts. Electronically signed by: Alban Chavira MD 01/07/2025 07:55 AM EDT
[2025-01-07 00:18] VITALS: BP 128/88; PULSE 89; RESP 16; TEMP 36.9; O2SAT 99; BMI 60.2
[2025-01-07 00:35] LABS: Glucose, Whole Blood 126 mg/dL (60-115)
[2025-01-07 00:39] LABS: MANUAL DIFF FLAG NO
[2025-01-07 00:40] LABS: Basophils Absolute Auto 0.1 X10*3/uL (0.0-0.2); Basophils Percent Auto 0.4 % (0-2); Eosinophils Absolute Auto 0.1 X10*3/uL (0.0-0.4); Eosinophils Percent Auto 0.6 % (0-4); Hematocrit 37.4 % (37.0-47.0); Hemoglobin 12.6 g/dl (12.0-16.0); Imm Gran Abs Auto 0.03 X10*3/uL (0.00-0.03); Imm Gran Pct Auto 0.2 % (0.0-0.4); Lymphocytes Absolute Auto 4.7 X10*3/uL (1.2-4.9); Lymphocytes Percent Auto 38.3 % (20-40); Mean Corpuscular HGB Conc 33.7 g/dl (31.0-35.0); Mean Corpuscular Hemoglobin 27.8 pg (27.0-33.0); Mean Corpuscular Volume 82.6 fL (80.0-98.0); Mean Platelet Volume 9.6 fL (9.4-12.3); Monocytes Absolute Auto 0.9 X10*3/uL (0.1-1.2); Monocytes Percent Auto 7.7 % (2-11); Neutrophils Absolute Auto 6.5 x10*3/uL (2.0-8.3); Neutrophils Percent Auto 52.8 % (45-73); Platelet Count 265 X10*3/uL (160-400); Red Blood Count 4.53 X10*6/uL (4.20-5.50); Red Cell Distribution Width 13.8 % (11.0-16.0); White Blood Count 12.3 X10*3/uL (4.8-10.8)
[2025-01-07 00:54] LABS: Alanine Aminotransferase 17 U/L (0-31); Alkaline Phosphatase 66 U/L (39-117); Anion Gap 12 (12-20); Aspartate Amino Transferase 18 U/L (5-31); Bilirubin Direct < 0.2 mg/dL (0.0-0.5); Bilirubin Total 0.2 mg/dL (0.0-1.0); Blood Urea Nitrogen 13 mg/dL (9-16); Calcium 9.2 mg/dL (8.4-10.2); Carbon Dioxide 22 mmol/L (22-29); Chloride 107 mmol/L (96-108); Estimated Glomerular Filt Rate > 60; Glucose Random 128 mg/dL (60-115); Lipase 17 U/L (8-78); Potassium 4.1 mmol/L (3.3-5.1); Sodium 137 mmol/L (135-145); Total Protein 7.8 g/dL (6.5-8.0)
--- OUTSIDE RECORDS SUMMARY | 2025-01-07 02:44 | XMS_ITS | Encounter Summary ---
Author Organization [facility] Address [address] [place] [address] Care Team Providers Care Resource Forester Name Role Phone Duc Martinez PA-C Primary Care Provider Reason for Visit * Reason Comments Blood Pressure Check Encounter Details Date Type Department Care Team ([facility] Contact Info) Description 12/23/2024 10:00 AM EST Office Visit [facility] [address] [place] [phone] Floresita Miller, RN [address] [place] [address] Essential hypertension (Primary Dx) Social History Tobacco Use Types Packs/Day Years Used Date Smoking Tobacco: Heavy Smoker Cigarettes Smokeless Tobacco: Never Comments:6-7 a day Alcohol Use Standard Drinks/Week Comments Not Currently 12 (1 standard drink = 0.6 oz pu re alcohol) every other day Social Connections Answer Date Recorded Connectedness 1 12/02/2024 Financial Resource Strain Answer Date R ecorded Financial Resource Strain 1 2024 Stress Answer Date Recorded Stress 1 12/02/2024 Physical Activity Answer Date Recorded Physical Activity 0 04/15/2020 Food Insecurity Answer Date Recorded Food 1 12/02/2024 Transportation Needs Answer Date Record ed Transportation 1 12/02/2024 Housing Stability Answer Date Recorded Housing 1 12/02/2024 Safety and Environment Answer Date Prasanna rded Safety 1 01/07/2024 Utilities Answer Date Recorded Utilities 1 12/02/2024 Employment Answer Date Recorded Stress 0 04/15/2020 Comments No Sex and Gender Information Value Date Recorded Sex Assigned at Female 08/09/2017 6:46 AM PDT Legal Sex Female 10:24 AM PDT Gender Identity Female 08/09/2017 6:46 AM PDT Sexual Orientation Straight 08/09/2017 6: 46 AM PDT Occupation Industry Job Start Date Job End Date 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 History Are you on blood pressure medication? yes - amlodipine-olmesartan (GIACOMO) 5-20 mg per tablet Home blood pressures are performed sporadically Did you take your medication today? No, pt has not taken BP medication for a week now as she has been having troubles with ins. Per pt, will tile picker today after BP visit. Medication adherence: nonadherent most of the time Did you bring medications/medication bottles/list of medications? no Documented Medications in [facility] EPIC: yes Over the counter medications: ibuprofen Current Outpatient Medications Medication Sig Dispense Refill amlodipine-olmesartan (GIACOMO) 5-20 mg per tablet Take 1 Tablet by mouth once daily 90 Tablet 1 blood sugar diagnostic (BLOOD GLUCOSE TEST) strips Use to test blood sugar three daily. (OneTouch Ultra) 100 Each 11 lancets 33 gauge Use to test blood sugar three daily. (OneTouch Delica 33G) 100 Each 11 benzonatate (TESSALON) 200 mg capsule Take 1 Capsule by mouth 3 (three) times daily as needed for cough for up to 10 days 30 Capsule 0 ketoconazole (NIZORAL) 2 % shampoo Use once weekly as needed for dandruff 240 mL 2 ONETOUCH ULTRA2 METER monitoring kit USE TO TEST BLOOD GLUCOSE THREE TIMES DAILY Authorized by: DUC MARTINEZ fluvoxaMINE (LUVOX) 100 mg tablet Authorized by: GRETCHEN SHERMAN lamoTRIgine (LAMICTAL) 200 mg tablet Authorized by: GRETCHEN SHERMAN metFORMIN (GLUCOPHAGE) 1,000 mg tablet Take 1 Tablet by mouth 2 (two) times daily with a meal 180 Tablet 1 alcohol swabs Use to test blood sugar three daily. 100 Each 11 blood pressure monitor Large cuff. Use to check blood pressure daily and as needed. Dx: I10 Meds: HCTZ LOS: 99 Pt needs automatic blood pressure monitor because it is extremely difficult to obtain a manual blood pressure on self. Additionally, pt is not medically trained to use a stethoscope or howto read a sphygmometer. 1 Kit 0 atorvastatin (LIPITOR) 20 mg tablet Take 1 Tablet by mouth once daily 90 Tablet 1 lisinopriL-hydrochlorothiazide 10-12.5 mg per tablet Take 1 Tablet by mouth once daily 90 Tablet 1 ergocalciferol (VITAMIN D-2) 1,250 mcg (50,000 unit) capsule Take 1 Capsule by mouth once a week hydrOXYzine HCL (ATARAX) 25 mg tablet No current facility-administered medications for this visit. Objective: Vitals: 12/23/24 1034 BP: (!) 154/62 BP Site: Right Arm BP Position: Sitting BP Cuff Size: Large Adult Pulse: 89 Last 3 BP Readings: Date: BP: 12/23/2024 154/62 12/02/2024 100/80 11/27/2024 130/80 Hypertension Guidelines 2014 Non-Diabetic or CKD patients Age> 60 y/o-150/90 Age< 60 y/o-140/90 Diabetic or CKD patients All ages w/ DM dx/ no CKD -140/90 All ages CKD present w/o DM -140/90 ALL BP > 140/90 nurse should consult with provider for instructions. If BP < 140/90 give instructions below. DIET Diet adherence: nonadherent some of the time, Do you add salt to your food? yes Do you eat a lot of canned/pre-packaged food products? no EXERCISE Physical activity: sporadic irregular exercise: walking EDUCATION Pt informed on S/Sx of HTN as well as when to seek immediate medical attention. Pt advised to maintain a low sodium diet and incorporate exercise into daily routine as tolerated Will route patient???s blood pressure ranges to PCP to obtain orders, confirm ongoing blood pressure measurement frequencies, confirm recommendations for medication titration, and plan for follow-ups. Next Follow-Up: DM f/u 01/07 w provider MICHAEL and 01/11 w nurse for BP documented in this encounter Miscellaneous Notes * Patient Instructions - Floresita Miller RN - 12/23/2024 10:57 AM EST If you are not able to keep your appointment please call 24-48 hours before your appointment to cancel or reschedule. documented in this encounter Plan of Treatment Upcoming Encounters Date Type Department Care Team (Late st Contact Info) Description 01/07/2025 3:00 PM EDT Telemedicine Visit [address] [phone] Neto Ureña PharmD [address] [place] [phone] 01/11/2025 10:00 AM EDT Office Visit [address] [phone] 01/14/2025 10:20 AM EDT Office Visit [address] [phone] Cathleen Logan RN [address] [place] [address] 01/15/2025 9:00 AM EDT Telemedicine Visit [address] [phone] Hayley Gaffney RN [address] [place] [phone] documented as of this encounter Visit Diagnoses Diagnosis Essential hypertension- Primary documented in this encounter Additional Health Concerns Assessment Noted Time PHQ-9 Depression Total Score: 0 12/02/19 11:17 AM PST documented as of this encounter Care Teams Resource Forester Relationship Specialty Start Date End Date Duc Martinez PA-C [address] [place] [phone] PCP - General [facility] 09/13/21 documented as of this encounter
--- OUTSIDE RECORDS SUMMARY | 2025-01-07 02:44 | XMS_ITS | Encounter Summary ---
Author Organization [facility] Address [address] [place] [address] Care Team Providers Care Assistant Cross Country Coach Name Role Phone Valarie Dominguez PA-C Primary Care Provider [phone] Reason for Visit * Reason Comments Smoking Cessation Encounter Details Date Type Department Care Team (Latest Contact Info) Description 11/20/2024 9:40 AM EST Telemedicine Visit [facility] [address] [place] [phone] Hayley Gaffney RN [address] [place], [place] [phone] Smoking trying to quit (Primary Dx) Social History Tobacco Use Types [...] Start Date Job End Date Works as [employer]ER and also at [employer] Not on file Not on fi le Not on file COVID-19 Exposure Response Date Recorded In the last 10 days, have catarino thompson been in contact with someone who was confirmed or suspected to have Coronavirus/COVID-19? No / Unsure 11/06/2024 8:21 AM EST documented as of this encounter Progress Notes * Hayley Gaffney RN - 11/20/2024 9:25 AM EST Kendall Canales is a 39 year old, [place]ayan-speaking female who presents today for a follow up visit in [facility] with Hayley Gaffney RN. Referred by Valarie Dominguez PA-C. SUBJECTIVE Past Medical History: Past Medical History Past Medical History: Diagnosis Date Cigarette nicotine dependence without complication 12/17/2018 Depressive disorder, not elsewhere classified Suicidal ideation 02/26/2018 With plan, post- Type 2 diabetes mellitus without complication, without long-term current use of insulin ([facility]) 11/06/2019 Unspecified essential hypertension Vitamin D deficiency 11/06/2019 Previous Quit Attempt(s): Number of quit attempts: 2 times for almost 4 years Pharmacologic therapy utilized: [place] Successful attempt? Yes Reason for discontinuation: Current stressful life events Current Tobacco Use: Type of tobacco: Cigarettes Quantity: 7/day and more than 2 packs/week Years used: over 20 years Triggers for using tobacco: stress Smokes first cigarette Within 30 Minutes of awakening. Current Quit Attempt: Reports has not tried to quit, but slowing down Motivations for quitting: Children, health, trying to conceive, finances Current pharmacological therapy: none OBJECTIVE Last 3 BP Readings: Date: BP: 10/16/2024 130/80 08/21/2024 130/80 08/20/2024 130/90 The ASCVD Risk score (Piedad GARCIA, et al., 2019) failed to calculate for the following reasons: The 2019 ASCVD risk score is only valid for ages 40 to 79 ASSESSMENT Tobacco cessation readiness: Contemplation - Current smoker who is considering quitting within the next 6 months and have not made an attempt in the last year. PLAN May consider issuing new prescription for nicotine replacement therapy (NRT): Nicotine patch: Place1 patch onto skin once daily. Remove prior to placing new patch. Begin with Step 1 (21 mg/day) for 6 weeks, followed by Step 2 (14 mg/day) for 2 weeks, finish with Step 3 (7 mg/day) for 2 weeks.. Follow-up in 2 weeks. EDUCATION Importance of smoking cessation for improved heart and lung function. Decreased risk of lung cancer. Medication(s): (indication, dosage, administration, storage, side effects, missing dose) Hayley Gaffney RN Contacted patient for smoking cessation counseling Patient contacted for follow up smoking cessation counseling Patient was a 2 pack a week smoker and down to 5 cigarettes a day Patient states since last visit, she has been trying to identifying her triggers. She tries to eat snacks, and cook, clean, drink tea States this is somewhat helping Patient is interested in walking club New goals journaling to cut down more documented in this encounter Plan of Treatment Upcoming Encounters Date Type Department Care Team (Late st Contact Info) Description 01/07/2025 3:00 PM EDT Telemedicine Visit [address] [phone] Neto Ureña, PharmD [address] [place] [address] 01/11/2025 10:00 AM EDT Office Visit [address] [phone] 01/14/2025 10:20 AM EDT Office Visit [address] [phone] Cathleen Logan RN [address] [place] [address] 01/15/2025 9:00 AM EDT Telemedicine Visit [address] [phone] Hayley Gaffney RN [facility] [place] [address] documented as of this encounter Visit Diagnoses Diagnosis Smoking trying to quit- Primary Tobacco use disorder documented in this encounter Additional Health Concerns Assessment Noted Time PHQ-9 Depression Total Score: 0 08/20/20 24 11:50 AM PDT documented as of this encounter Care Teams Assistant Cross Country Coach Relationship Specialty Start Date End Date Valarie Dominguez PA-C [address] [place] [address] PCP - General [facility] [place] 09/13/21 documented as of this encounter
--- OUTSIDE RECORDS SUMMARY | 2025-01-07 02:44 | XMS_ITS | Encounter Summary ---
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 Impacted cerumen successfully removed from R ear w/o difficulty. Pt denies pain & dizziness. [place] [facility] [place] reporting dry cough concerns that have persisted since the summer. Per PCP pt's Lisinopril/HCTZ has been d/c and switched to amlodipine/olmesartan. Pt scheduled for a 2 week BP f/u. [place] w/ appt date & time. documented in this encounter Plan of Treatment Upcoming Encounters Date Type Department Care Team (Late st Contact Info) Description 01/07/2025 3:00 PM EDT Telemedicine Visit [address] [phone] Neto Ureña, PharmD [address] [place] [phone] 01/11/2025 10:00 AM EDT Office Visit [address] [phone] 01/14/2025 10:20 AM EDT Office Visit [address] [phone] Cathleen Logan RN [address] [place] [address] 01/15/2025 9:00 AM EDT Telemedicine Visit [address] [phone] Hayley Gaffney RN [address] [place] [address] documented as of this encounter Visit Diagnoses Diagnosis Right ear impacted cerumen- Primary Impacted cerumen documented in this encounter Additional Health Concerns Assessment Noted Time PHQ-9 Depression Total Score: 0 12/02/19 25 11:17 AM PST documented as of this encounter Care Teams Home Lighting Adviser Relationship Specialty Start Date End Date Valarie Dominguez PA-C [address] [place] [address] PCP - General FAMILY MEDICINEJUNITO 09/13/21 documented as of this encounter
--- OUTSIDE RECORDS SUMMARY | 2025-01-07 02:44 | XMS_ITS | Encounter Summary ---
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 Referred by Valarie Dominguez PA-C. SUBJECTIVE Past Medical History: Past Medical History Past Medical History: Diagnosis Date Cigarette nicotine dependence without complication 12/17/2018 Depressive disorder, not elsewhere classified Suicidal ideation 02/26/2018 With plan, post- Type 2 diabetes mellitus without complication, without long-term current use of insulin ([facility]) 11/06/2019 Unspecified essential hypertension Vitamin D deficiency 11/06/2019 Previous Quit Attempt(s): Number of quit attempts: 2 times for almost 4 years Pharmacologic therapy utilized: [place] Successful attempt? Yes Reason for discontinuation: Current [...] Gaffney RN Contacted patient for smoking cessation follow up appointment Patient reports she is still smoking 5 cigarettes a day, feels she is struggling, trying to discover methods to relieve stress. Patient not interested in quit date yet Would like to work on distraction techniques. Patient scheduled for 1 month follow up documented in this encounter Plan of Treatment Upcoming Encounters Date Type Department Care Team (Late st Contact Info) Description 01/07/2025 3:00 PM EDT Telemedicine Visit [address] [phone] Neto Ureña PharmD [address] [place] [address] 01/11/2025 10:00 AM EDT Office Visit [address] [phone] 01/14/2025 10:20 AM EDT Office Visit [address] [phone] Cathleen Logan RN [address] [place] [address] 01/15/2025 9:00 AM EDT Telemedicine Visit [address] [phone] Hayley Gaffney, LUCI [address] [place] [address] documented as of this encounter Visit Diagnoses Diagnosis Smoking trying to quit- Primary Tobacco use disorder documented in this encounter Additional Health Concerns Assessment Noted Time PHQ-9 Depression Total Score: 0 12/02/19 25 11:17 AM PST documented as of this encounter Care Teams Craniologist Relationship Specialty Start Date End Date Valarie Dominguez PA-C NPI: [id number] [place] [id number] PCP - General FAMILY MEDICINEJUNITO 09/13/21 documented as of this encounter
--- OUTSIDE RECORDS SUMMARY | 2025-01-07 02:44 | XMS_ITS | Encounter Summary ---
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 test came back negative. Pt advised to f/u w/ OBGYN for additional menses related concerns. Z32.02 test negative (primary encounter diagnosis) Plan : HCG URINE MCKESSON (POCT) documented in this encounter Plan of Treatment Upcoming Encounters Date Type Department Care Team (Late st Contact Info) Description 01/07/2025 3:00 PM EDT Telemedicine Visit [address] [phone] Neto Ureña PharmD [address] [place] [address] 01/11/2025 10:00 AM EDT Office Visit [address] [phone] 01/14/2025 10:20 AM EDT Office Visit [address] [phone] Cathleen Logan RN [address] [place] [address] 01/15/2025 9:00 AM EDT Telemedicine Visit [address] [phone] Hayley Gaffney RN [address] [place] [address] documented as of this encounter Procedures Procedure Name Priority Date/Time Associated Diagnosis Comments HCG URINE MCKESSON (POCT) Routine 12/11/2024 11:06 AM EST test negative documented in this encounter Results * HCG URINE MCKESSON (POCT) (12/11/2024 11:06 AM EST) URINE HCG NEGATIVE NEGATIVE [facility]- BACK OFFICE POCT INTERNAL CONTROL PASS PASS [facility]- BACK OFFICE POCT Urine Urine specimen / Unknown 12/11/2024 11:06 AM EST Valarie Dominguez PA-C LAB - NO BLOOD DRAW Final Re sult [facility]- BACK OFFICE POCT documented in this encounter Visit Diagnoses Diagnosis test negative- Primary examination or test, negative result documented in this encounter Additional Health Concerns Assessment Noted Time PHQ-9 Depression Total Score: 0 12/02/19 25 11:17 AM PST documented as of this encounter Care Teams Extracorporeal Technician Relationship Specialty Start Date End Date Valarie Dominguez PA-C [address] [place] [address] PCP - General FAMILY MEDICINEJUNITO 09/13/21 documented as of this encounter
--- OUTSIDE RECORDS SUMMARY | 2025-01-07 02:44 | XMS_ITS | Clinical Summary ---
Author Organization [facility] Address [address] [place] [address] Care Team Providers Care Filling Operator Name Role Phone Valarie Dominguez PA-C Primary Care Provider Source Comments PLEASE NOTE, if this patient is a minor, it may be UNLAWFUL to discuss sensitive information that is contained in these records (such as FAMILY PLANNING, MENTAL HEALTH or SUBSTANCE ABUSE) with the minor patient's parent or other person without the patient's specific authorization.[facility] Allergies Active Allergy Reactions Criticality Noted Date Comments Hydrocodone-Acetaminop hen Anaphylaxis 04/21/2015 Dizziness. But takes Tylenol Lurasidone Other (See Comments) 06/27/2018 Tongue twitching Risperidone Other (See Comments) 06/27/2018 Causes twitching of the mouth and tongue. Medications ergocalciferol (VITAMIN D-2) 1,250 mcg (50,000 unit) capsule Take 1 Capsule by mouth once a week 10/24/20 23 Active hydrOXYzine HCL (ATARAX) 25 mg tablet 11/26/19 24 Active lisinopriL-hydro chlorothiazide 10-12.5 mg per tabletIndication s:Essential hypertension Take 1 Tablet by mouth once daily 90 Tablet 1 08/10/20 24 Active blood pressure monitorIndicatio ns:Hx of essential hypertension Large cuff. Use to check blood pressure daily and as needed. Dx: I10 Meds: HCTZ LOS: 99 Pt needs automatic blood pressure monitor because it is extremely difficult to obtain a manual blood pressure on self. Additionally, pt is not medically trained to use a stethoscope or how to read a sphygmometer. 1 Kit 08/20/20 24 Active fluvoxaMINE (LUVOX) 100 mg tablet Authorized by: GRETCHEN SHERMAN 10/14/20 24 Active lamoTRIgine (LAMICTAL) 200 mg tablet Authorized by: GRETCHEN SHERMAN 10/14/20 24 Active benzonatate (TESSALON) 200 mg capsuleIndicatio ns:Other cough Take 1 Capsule by mouth 3 (three) times daily as needed for cough for up to 10 days 30 Capsule 12/02/19 25 Active ketoconazole (NIZORAL) 2 % shampooIndicatio ns:Seborrheic dermatitis Use once weekly as needed for dandruff 240 mL 2 12/02/19 25 Active amlodipine-olmes tashia (GIACOMO) 5-20 mg per tabletIndication s:Essential hypertension Take 1 Tablet by mouth once daily 90 Tablet 1 12/09/19 25 Active alcohol swabsIndications :Type 2 diabetes mellitus without complication, without long-term current use of insulin ([facility]) Use to test blood sugar three daily. 100 Each 11 12/25/19 25 Active atorvastatin (LIPITOR) 20 mg tabletIndication s:Essential hypertension Take 1 Tablet by mouth once daily 90 Tablet 1 12/25/19 25 Active blood sugar diagnostic (BLOOD GLUCOSE TEST) stripsIndication s:Type 2 diabetes mellitus without complication, without long-term current use of insulin ([facility]) Use to test blood sugar three daily. (OneTouch Ultra) 100 Each 12/25/19 25 Active lancets 33 gaugeIndications :Type 2 diabetes mellitus without complication, without long-term current use of insulin ([facility]) Use to test blood sugar three daily. (OneTouch Delica 33G) 100 Each 12/25/19 25 Active metFORMIN (GLUCOPHAGE) 1,000 mg tabletIndication s:Type 2 diabetes mellitus without complication, without long-term current use of insulin ([facility]) Take 1 Tablet by mouth 2 (two) times daily with a meal 180 Tablet 1 12/25/19 25 Active ONETOUCH ULTRA2 METER monitoring kitIndications:T ype 2 diabetes mellitus without complication, without long-term current use of insulin ([facility]) daily USE TO TEST BLOOD GLUCOSE THREE TIMES DAILY 1 Each 12/25/19 25 Active atorvastatin (LIPITOR) 20 mg tabletIndication s:Essential hypertension Take 1 Tablet by mouth once daily 90 Tablet 1 08/10/20 24 025 Discontinu ed(Reorder (E-Cancel Not Sent)) blood sugar diagnostic (BLOOD GLUCOSE TEST) stripsIndication s:Type 2 diabetes mellitus without complication, without long-term current use of insulin ([facility]) Use to test blood sugar three daily. (OneTouch Ultra) 100 Each 11 09/30/20 24 025 Discontinu ed(Reorder (E-Cancel Not Sent)) lancets 33 gaugeIndications :Type 2 diabetes mellitus without complication, without long-term current use of insulin ([facility]) Use to test blood sugar three daily. (OneTouch Delica 33G) 100 Each 11 09/30/20 24 025 Discontinu ed(Reorder (E-Cancel Not Sent)) alcohol swabsIndications :Type 2 diabetes mellitus without complication, without long-term current use of insulin ([facility]) Use to test blood sugar three daily. 100 Each 11 09/30/20 24 025 Discontinu ed(Reorder (E-Cancel Not Sent)) metFORMIN (GLUCOPHAGE) 1,000 mg tabletIndication s:Type 2 diabetes mellitus without complication, without long-term current use of insulin ([facility]) Take 1 Tablet by mouth 2 (two) times daily with a meal 180 Tablet 1 10/16/20 24 025 Discontinu ed(Reorder (E-Cancel Not Sent)) ONETOUCH ULTRA2 METER monitoring kit USE TO TEST BLOOD GLUCOSE THREE TIMES DAILY Authorized by: VALARIE DOMINGUEZ 11/13/19 25 025 Discontinu ed(Reorder (E-Cancel Not Sent)) carbamide peroxide (DEBROX) 6.5 % otic solutionIndicati ons:Right ear impacted cerumen Place 5 Drops into the right ear 2 (two) times daily for 5 days 15 mL 12/02/19 25 025 blood sugar diagnostic (BLOOD GLUCOSE TEST) stripsIndication s:Type 2 diabetes mellitus without complication, without long-term current use of insulin ([facility]) Use to test blood sugar three daily. (OneTouch Ultra) 100 Each 11 12/09/19 25 025 Discontinu ed(Reorder (E-Cancel Not Sent)) lancets 33 gaugeIndications :Type 2 diabetes mellitus without complication, without long-term current use of insulin ([facility]) Use to test blood sugar three daily. (OneTouch Delica 33G) 100 Each 11 12/09/19 25 025 Discontinu ed(Reorder (E-Cancel Not Sent)) Active Problems Problem Noted Date Diagnosed Date Abnormal uterine bleeding (AUB) 09/24/2023 Flat foot 07/18/2023 Foot arch pain 07/18/2023 Essential hypertension 02/20/2022 Anxiety 09/04/2021 Back spasm 09/04/2021 Low back strain 09/04/2021 Vitamin D deficiency 11/06/2019 Type 2 diabetes mellitus wit hout complication, without long-term current use of insulin ([facility]) 11/06/2019 Cigarette nicotine dependence without complicati on 12/17/2018 Bipolar disorder, current episode mixed, moderat e ([facility]) 11/26/2017 Overview (11/26/2017): Recently hospitalized inpatient for racing thoughts and konrad. Anemia 06/18/2016 Hyperlipidemia 06/28/2015 Pulmonary vascular congestion 04/21/2015 Overview (04/21/2015): ECHO(02/2012 for ? Murmur): Summary: The left ventricular size is normal. Left ventricular wall thickness is normal. The LV systolic function is normal . The left ventricular ejection fraction is 60-65 %. There are no regional wall motion abnormalities. Normal diastolic function. The right ventricle is normal in size and function. Class 3 severe obesity due t o excess calories with serious comorbidity and body mass index (BMI) of 60.0 to 69.9 in adult ([facility]) 04/21/2015 Depression with anxiety 04/21/2015 Overview (02/26/2018): Followed by Ana Girard (psych) and therapist Shari at [address] [place] [address] MICHAEL Dean Currently on Ativan prn. Did not use last 2 months. She was on Zoloft abt 10yrs ago. Chronic constipation 04/21/2015 Snoring 04/21/2015 Overview (03/31/2018): Referred to sleep center-03/13/18- Study WNL Resolved Problems Problem Noted Date Diagnosed Date Resolved Date Suicidal ideation 02/26/2018 11/18/2019 Overview (02/26/2018): With plan, post- 09/09/2015 11/18/2019 Prediabetes 06/28/2015 11/06/2019 Overview (12/21/2016): Fasting Bl glu= 117, A1c=5.8 (05/2015)--> 6.1(11/2016) Encounters Date Type Department Care Team Description 12/23/2024 10:00 AM EST Office Visit [address] [phone] Floresita Miller RN Essential hypertension (Primary Dx) 12/18/2024 9:00 AM EST Telemedicine Visit [address] [phone] Hayley Gaffney RN Smoking trying to quit (Primary Dx) 12/11/2024 9:40 AM EST Office Visit [address] [address] Antonio De Dios RN test negative (Primary Dx) 12/11/2024 Interim Notes [address] [address] Trnih Miller MA 12/09/2024 10:20 AM EST Office Visit [address] [phone] Antonio De Dios RN Right ear impacted cerumen (Primary Dx) 12/02/2024 10:40 AM EST Office Visit [address] [phone] Valarie Dominguez PA-C Annual physical exam (Primary Dx); Type 2 diabetes mellitus without complication, without long-term current use of insulin ([facility]); Essential hypertension; Other cough; Seborrheic dermatitis; Right ear impacted cerumen; Missed period 11/27/2024 2:20 PM EST Office Visit [address] [phone] Neto Ureña PharmD Type 2 diabetes mellitus without complication, without long-term current use of insulin ([facility]) (Primary Dx); Essential hypertension; Class 3 severe obesity due to excess calories with serious comorbidity and body mass index (BMI) of 60.0 to 69.9 in adult ([facility]); Medication management 11/20/2024 9:40 AM EST Telemedicine Visit [address] [address] Hayley Gaffney RN Smoking trying to quit (Primary Dx) 11/06/2024 9:00 AM EST Telemedicine Visit [address] [phone] Hayley Gaffney RN Cigarette nicotine dependence without complication (Primary Dx) 11/06/2024 Travel 10/16/2024 2:20 PM EST Office Visit [address] [phone] Neto Ureña PharmD Type 2 diabetes mellitus without complication, without long-term current use of insulin ([facility]) (Primary Dx); Essential hypertension; Class 3 severe obesity due to excess calories with serious comorbidity and body mass index (BMI) of 60.0 to 69.9 in adult ([facility]); Medication management 10/16/2024 Travel from Last 3 Months Immunizations Name Administration Dates Next Due Hpv, Unspecified 08/19/2008, 8,04/20/2008,04/20/2008,02/06/2008,01/26 TDAP 06/20/2017,06/20/2017 Family History Medical History Relation Name Comments Mental illness Brother Diabetes Father Hypertension Father Hypertension Mother Mental illness Sister Relation Name Status Comments Brother Alive Father Mother Alive Sister Alive Social History Tobacco Use Types Packs/Day Years Used Date Smoking Tobacco: Heavy Smoker Cigarettes Smokeless Tobacco: Never Tobacco Cessation:Ready to Q uit: Not Asked; Counseling Given: Not Answered Comments:6-7 a day Alcohol Use Standard Drinks/Week [...] Start Date Job End Date 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 [employer] Not on file Not on fi le Not on file Last Filed Vital Signs Vital Sign Reading Time Taken Comments Blood Pressure 154/62 12/23/2024 10:34 AM EST Pulse 89 12/23/2024 10:34 AM EST Temperature 36.1 ??C (97 ??F) 12/02/2024 11:10 AM EST Respiratory Rate 16 12/02/2024 11:10 AM EST Oxygen Saturation 99% 12/02/2024 11:10 AM EST Inhaled Oxygen Concentration - - Weight 159.2 kg (351 lb) 12/02/2024 11:10 AM EST Height 157.5 cm (5' 2 ) 12/02/2024 11:10 AM EST Body Mass Index 64.2 12/02/2024 11:10 AM EST Plan of Treatment Upcoming Encounters Date Type Department Care Team (Late st Contact Info) Description 01/07/2025 3:00 PM EDT Telemedicine Visit [facility] [address] [place] [phone] Neto Ureña, PharmD [address] [place] [address] 01/11/2025 10:00 AM EDT Office Visit [facility] [place] [phone] 01/14/2025 10:20 AM EDT Office Visit [address] [phone] Cathleen Logan, RN [phone] [place] [address] 01/15/2025 9:00 AM EDT Telemedicine Visit [address] [phone] Hayley Gaffney RN [address] [place] [address] Health Maintenance Due Date Last Done Comments Dental Examination 1985 HPV Screening 1985 Pap + HPV 1985 Medicare Annual Wellness Visit 2003 Imm-Pneumococcal (1 of 2 - PCV) 2004 Cervical Cancer Screening 02/25/2017 Pap Smear 02/25/2017 02/25/2014 (Anni navarro by Outside Provider) Diabetes Microalbumin (w/Creatinine) 11/18/2020 11/18/2019 Diabetes Foot Exam 04/19/2024 04/19/2023, 11/18/2019 Diabetes HbA1c 12/28/2024 09/29/2024, 01/27, 10/07/2023, Additional history exists Relationship Safety Screening/Counseling 01/06/2025 01/07/2024, 10/11/2022, 02/20/2022, Additional history exists [id number] ( season) 2025 Postponed from 06/28/2024 (Patient postponement) Depression Monitoring 03/01/2025 12/02/2024 , 08/20/2024, 01/07/2024, Additional history exists Tobacco Cessation Counseling (#1) 08/25/2025 02/27/2024 Lipid Screening 09/29/2025 09/29/2024, 01/27, 10/07/2023, Additional history exists Serum Creatinine 09/29/2025 09/29/2024, , 10/07/2023, Additional history exists Retinopathy Screening 12/28/2025 12/28/2024 Imm-DTaP/Tdap/Td (3 - Td or Tdap) 06/20/2027 06/20/2017, 06/20/2017 Hepatitis C Screening Completed 06/23/2015 HIV Screening Completed 11/05/2019 Alcohol and Drug Screen Completed 12/02/19, 08/20/2024, 01/07/2024, Additional history exists Cervical Ablation/Cold-Knife Conization Discontinued Cervical Cryotherapy Discontinued Colposcopy Discontinued Endometrial Biopsy Discontinued Excision/Leep Discontinued HPV Genotyping Discontinued Imm-Hepatitis B Discontinued Imm-Influenza Discontinued Vaginal Pap Discontinued Vulvoscopy Discontinued Procedures Procedure Name Priority Date/Time Associated Diagnosis Comments OTHER ORDERS SCANNED DOCUMENT 12/30/2024 3:00 AM EST REFERRAL TO OPHTHALMOLOGY Routine 12/28/2024 3:00 AM EST Type 2 diabetes mellitus without complication, without long-term current use of insulin ([facility]) OTHER ORDERS SCANNED DOCUMENT 12/17/2024 3:00 AM EST HCG URINE MCKESSON (POCT) Routine 12/11/2024 11:06 AM EST test negative HCG URINE MCKESSON (POCT) Routine 12/02/2024 3:06 PM EST Missed period GLUCOSE, BLOOD BY GLUCOSE MONITORING DEVICE (CLIA WAIVED)POCT Routine 11/27/2024 2:32 PM EST Type 2 diabetes mellitus without complication, without long-term current use of insulin ([facility]) OTHER ORDERS SCANNED DOCUMENT 11/17/2024 3:00 AM EST GLUCOSE, BLOOD BY GLUCOSE MONITORING DEVICE (CLIA WAIVED)POCT Routine 10/16/2024 2:47 PM EST Type 2 diabetes mellitus without complication, without long-term current use of insulin ([facility]) OTHER ORDERS SCANNED DOCUMENT 10/13/2024 3:00 AM EST OTHER ORDERS SCANNED DOCUMENT 10/13/2024 3:00 AM EST COMPREHENSIVE METABOLIC PANEL Routine 09/29/2024 9:38 AM EST Type 2 diabetes mellitus without complication, without long-term current use of insulin ([facility]) Essential hypertension LIPID PANEL Routine 09/29/2024 9:38 AM EST Type 2 diabetes mellitus without complication, without long-term current use of insulin ([facility]) Essential hypertension HEMOGLOBIN GLYCOSYLATED A1C Routine 09/29/2024 9:38 AM EST Type 2 diabetes mellitus without complication, without long-term current use of insulin ([facility]) MICROALBUMIN/CREATINI NE RATIO, URINE, RANDOM Routine 11/18/2019 3:39 PM EST Type 2 diabetes mellitus without complication, without long-term current use of insulin ([facility]) ANTIBODY HIV-1&HIV-2 SINGLE RESULT Routine 11/05/2019 1:40 PM EST Pulmonary vascular congestion HEPATITIS A,B,C PANEL Routine 06/23/2015 10:16 AM EDT Routine adult health maintenance from Last 3 Months or Most Recently Relevant to Health Maintenance Results * OTHER ORDERS SCANNED DOCUMENT (12/30/2024 3:00 AM EST) Only the most recent of5 resultswithin the time period is included. 12/30/2024 3:00 AM EST us Valarie Dominguez PA-C SCAN OTHER ORDERS Final Resu lt * REFERRAL TO OPHTHALMOLOGY (12/28/2024 3:00 AM EST) 12/28/2024 3:00 AM EST us Valarie Dominguez PA-C REFERRAL Final Result * HCG URINE MCKESSON (POCT) (12/11/2024 11:06 AM EST) Only the most recent of2 resultswithin the time period is included. URINE HCG NEGATIVE NEGATIVE [facility] POCT INTERNAL CONTROL PASS PASS [facility] POCT Urine Urine specimen / Unknown 12/11/2024 11:06 AM EST us Valarie Dominguez PA-C LAB - NO BLOOD DRAW Final Re sult [facility] OFFICE POCT * (ABNORMAL) GLUCOSE, BLOOD BY GLUCOSE MONITORING DEVICE (CLIA WAIVED)POCT (11/27/2024 2:32 PM EST) Only the most recent of2 resultswithin the time period is included. GLUCOSE 124(A) 70 - 100 mg/dL [facility] OFFICE POCT Capillary Blood Blood / Unknown 2:32 PM EST Neto HernandezD LAB - BLOOD DRAW Final Resu lt Performing Organization Address [facility] Co de Phone Number [facility] POCT * (ABNORMAL) HEMOGLOBIN GLYCOSYLATED A1C (09/29/2024 9:38 AM EST) HEMOGLOBIN A1C 8.6(H) <5.7 % of total Hgb [facility] Comment: For someone without known diabetes, a hemoglobin A1c value of 6.5% or greater indicates that they may have diabetes and this should be confirmed with a follow-up test. For someone with known diabetes, a value <7% indicates that their diabetes is well controlled and a value greater than or equal to 7% indicates suboptimal control. A1c targets should be individualized based on duration of diabetes, age, comorbid conditions, and other considerations. Currently, no consensus exists regarding use of hemoglobin A1c for diagnosis of diabetes for children. ?? Blood Blood / Unknown 09/29/2024 9 :38 AM EST 09/29/2024 9:38 AM EST Narrative [facility] - 09/30/2024 8:43 AM EST FASTING:YES us Valarie Dominguez PA-C LAB - BLOOD DRAW Edited Resu lt - Final Performing Organization Address City/[facility] Co de Phone Number [facility] [address] [address], [employer] [address] [phone] * (ABNORMAL) LIPID PANEL (09/29/2024 9:38 AM EST) CHOLESTEROL, TOTAL 173 <200 mg/dL [facility] HDL CHOLESTEROL 39(L) > OR = 50 mg/dL [facility] TRIGLYCERIDES 67 <150 mg/dL [facility] LDL-CHOLESTEROL 118(H) 99 mg/dL (calc) [facility] Comment: Reference range: <100 Desirable range <100 mg/dL for primary prevention; ?? <70 mg/dL for patients with CHD or diabetic patients with > or = 2 CHD risk factors. LDL-C is now calculated using the Nancy calculation, which is a validated novel method providing better accuracy than the Friedewald equation in the estimation of LDL-C. Aries SS et al. HAILEE. 2013;310(19): 7145-2837 (http://education.Cranberry Chic/faq/VSV093) CHOL/HDLC RATIO 4.4 <5.0 (calc) [facility] NON-HDL CHOLESTEROL 134(H) <130 mg/dL (calc) [facility] Comment: For patients with diabetes plus 1 major ASCVD risk factor, treating to a non-HDL-C goal of <100 mg/dL (LDL-C of <70 mg/dL) is considered a therapeutic option. Blood Blood / Unknown 09/29/2024 9 :38 AM EST 09/29/2024 9:38 AM EST Narrative [facility] - 09/30/2024 8:43 AM EST FASTING:YES us Valarie Dominguez PA-C LAB - BLOOD DRAW Final Resul t [facility] [address] [place] [phone], [facility] [address] [place] [address] * (ABNORMAL) COMPREHENSIVE METABOLIC PANEL (09/29/2024 9:38 AM EST) GLUCOSE 187(H) 65 - 99 mg/dL [facility] Comment: ?Fasting reference interval For someone without known diabetes, a glucose value >125 mg/dL indicates that they may have diabetes and this should be confirmed with a follow-up test. UREA NITROGEN (BUN) 17 7 - 25 mg/dL [facility] CREATININE (blood) 0.76 0.50 - 0.97 mg/dL [facility] EGFR 103 > OR = 60 mL/min/1. 73m2 [facility] BUN/CREATININE RATIO SEE NOTE: [facility] Comment: ?? Not Reported: BUN and Creatinine are within ?? reference range. ? SODIUM 135 135 - 146 mmol/L [facility] POTASSIUM 4.4 3.5 - 5.3 mmol/L [facility] CHLORIDE 101 98 - 110 mmol/L [facility] CARBON DIOXIDE 28 20 - 32 mmol/L [facility] CALCIUM 8.8 8.6 - 10.2 mg/dL [facility] PROTEIN, TOTAL 7.1 6.1 - 8.1 g/dL [facility] ALBUMIN 4.1 3.6 - 5.1 g/dL [facility] GLOBULIN 3.0 1.9 - 3.7 g/dL (calc) [facility] ALBUMIN/GLOBULI N RATIO 1.4 1.0 - 2.5 (calc) [facility] BILIRUBIN, TOTAL 0.4 0.2 - 1.2 mg/dL [facility] ALKALINE PHOSPHATASE 65 31 - 125 U/L [facility] AST 14 10 - 30 U/L [facility] ALT 18 6 - 29 U/L [facility] Blood Blood / Unknown 09/29/2024 9 :38 AM EST 09/29/2024 9:38 AM EST Narrative [facility] - 09/30/2024 8:43 AM EST FASTING:YES us Valarie Dominguez PA-C LAB - BLOOD DRAW Final Resul t [facility] [address] [address], [employer] [facility] [address] [place] [address] * MICROALBUMIN/CREATININE RATIO, URINE, RANDOM (11/18/2019 3:39 PM EST) CREATININE, RANDOM URINE 35 mg/dL [facility] MICROALBUMIN, RANDOM 5.6 0.0 - 29.0 mg/L [facility] MICROALB/CRE RATIO RANDOM < 16.0 0.0 - 30.0 mg/G [facility] Urine specimen (specimen) Urine specimen / Unknown 11/18/2019 3:39 PM EST 11/18/2019 8:31 PM EST Narrative [facility] - 11/18/2019 9:26 PM EST [employer], [place] [address] Implementation Technician - Serene Casas MD PT ID [id number] ORD# [id number] Winifred BROOKS LAB - NO BLOOD DRAW Edited Resul t - Final Performing Organization Address City/[facility]/[place] [address], * HIV-1 & HIV-2 ANTIBODIES (11/05/2019 1:40 PM EST) HIV 1 AND 2 ANTIBODY SCREEN NONREACTIVE NONREACTIVE [facility] Comment: HIV testing performed at reference lab due to reagent backorder. Test performed at: [facility] [address] [place] [address] Nahum Crews MD- Implementation Technician Blood specimen (specimen) Blood / Unknown 11/05/2019 1:40 PM EST 11/05/2019 1:43 PM EST Narrative [facility] - 11/09/2019 12:01 PM EST [employer], a member of [address] [address] Implementation Technician - Serene Casas MD PT ID [id number] ORD# [id number] Winifred BROOKS LAB - BLOOD DRAW Final Result Performing Organization Address [facility]/ZIP Co de Phone Number [address] [address], * (ABNORMAL) HEPATITIS A,B,C PANEL (06/23/2015 10:16 AM EDT) HEPATITIS B SURFACE ANTIBODY POSITIVE(A) NEGATIVE [facility] HEPATITIS B SURFACE ANTIGEN NEGATIVE NEGATIVE [facility] HEPATITIS C VIRUS DIAGNOSTIC NEGATIVE NEGATIVE [facility] HEPATITIS A ANTIBODY TOTAL NEGATIVE NEGATIVE [facility] HEPATITIS B CORE ANTIBODY NEGATIVE NEGATIVE [facility] Blood specimen (specimen) Blood / Unknown 06/23/2015 10:16 AM EDT 06/23/2015 6:07 PM EDT Narrative [facility] - 06/23/2015 9:06 PM EDT [facility] [employer] [address] [place] [address] PT ID [id number] ORD# [id number] Harman Neumann MD LAB - BLOOD DRAW Edited Resu lt - Final [facility] [address] [place] [address], from Last 3 Months or Most Recently Relevant to Health Maintenance [facility] [place] [address] HEALTH SAFETY NET DENTAL MEDICARE - [place] MEDICA[place] Care Teams Filling Operator Relationship Specialty Start Date End Date Valarie Dominguez PA-C [address] [place] [address] PCP - General [facility] [place] 09/13/21
--- OUTSIDE RECORDS SUMMARY | 2025-01-07 02:44 | XMS_ITS | Encounter Summary ---
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 [employer] Not on file Not on fi le Not on file documented as of this encounter Progress Notes * Trinh Miller MA - 12/11/2024 4:08 PM EST Scrip for lancarianna fax to [phone] confirmed and sent to medical records documented in this encounter Plan of Treatment Upcoming Encounters Date Type Department Care Team (Late st Contact Info) Description 01/07/2025 3:00 PM EDT Telemedicine Visit [address] [phone] Neto Ureña PharmD [address] [place] [id number] 01/11/2025 10:00 AM EDT Office Visit [address] [phone] 01/14/2025 10:20 AM EDT Office Visit [address] [phone] Cathleen Logan, RN [address] [place] [address] 01/15/2025 9:00 AM EDT Telemedicine Visit [address] [phone] Hayley Gaffney RN [facility] [place] [address] documented as of this encounter Visit Diagnoses Not on filedocumented in this encounter Additional Health Concerns Assessment Noted Time PHQ-9 Depression Total Score: 0 12/02/19 25 11:17 AM PST documented as of this encounter Care Teams Prosthetic Lab Technician Relationship Specialty Start Date End Date Valarie Dominguez PA-C [address] [place] [id number] PCP - General [facility] 09/13/21 documented as of this encounter
[2025-01-07 02:48] VITALS: BP 99/48; PULSE 84; RESP 16; TEMP 36.8; O2SAT 97
--- NOTE | 2025-01-07 02:53 | MHC.EDTECH ---
This pct just assumed care of Patient ,vitals taken ,Patient urine sample collected and sent to lab .
[2025-01-07 02:58] LABS: Appearance Urine Cloudy; Color Urine Yellow; Glucose Urine UA Negative (Negative); Leukocyte Esterase Urine Negative (Negative); Nitrite Urine Negative (Negative); PH 5.5 (5.0-9.0); Specific Gravity - Urine >= 1.030 (1.005-1.025); UMIC TRIGGER UACC YES; Urine Blood Trace (Negative); Urine Ketones Negative (Negative); Urine Protein Negative (Neg-Trace)
[2025-01-07 03:05] LABS: Bacteria Urine 2+ (None Seen); Hyaline Casts Urine 0-2 /LPF (0-2); WBC Urine 0-5 /HPF (0-5)
[2025-01-07 03:24] LABS: HCG Quantitative < 2 mIU/mL
[2025-01-07 06:07] VITALS: BP 121/73; PULSE 83; RESP 16; TEMP 36.8; O2SAT 97
--- NOTE | 2025-01-07 07:14 | ED_ITS ---
HPI - Abdominal Pain General Chief Complaint: Abdominal Pain Stated Complaint: abdominal pain Time Seen by Provider: 01/07/25 06:33 Source: patient, RN notes reviewed and old records reviewed Mode of arrival: ambulatory History of Present Illness ED Provider: Le Rodriguez PA-C HPI narrative: 39-year-old female with a past medical history of HLD, CAD, HTN, diabetes, presenting to the ED complaining intermittent right flank pain radiating to right side/RUQ x 4 days described as burning. Reports pain vs with eating and movement. Admits to associated bloating and diarrhea. Denies fever, chills, nausea, vomiting, dysuria / hematuria, vaginal bleeding, CP/ SOB. LMP 12/10. Related Data Home Medications ?Medication ?Instructions ?Recorded ?Confirmed atorvastatin 20 mg tablet 20 mg PO DAILY 10/17/23 10/17/23 cholecalciferol (vitamin D3) 25 25 mcg PO DAILY 10/17/23 10/17/23 mcg (1,000 unit) capsule (Vitamin D3) folic acid 1 mg tablet 1 mg PO DAILY 10/17/23 10/17/23 lisinopril 20 1 tab PO DAILY 10/17/23 10/17/23 mg-hydrochlorothiazide 25 mg tablet metformin 500 mg tablet 500 mg PO BID 10/17/23 10/17/23 naproxen 500 mg tablet 500 mg PO BID 10/17/23 10/17/23 pyridoxine (vitamin B6) 100 mg 100 mg PO DAILY 10/17/23 10/17/23 tablet (Vitamin B-6) thiamine HCl (vitamin B1) 100 mg 100 mg PO DAILY 10/17/23 10/17/23 tablet (Vitamin B-1) Previous Rx's ?Medication ?Instructions ?Recorded ergocalciferol (vitamin D2) 1,250 1,250 mcg PO QWEEK #10 caps 10/23/23 mcg (50,000 unit) capsule (Vitamin D2) benztropine 1 mg tablet 1 mg PO .QHS as directed #30 tabs 11/04/23 bisacodyl 5 mg tablet,delayed 5 - 10 mg (1 - 2 x 5 mg) PO 11/11/23 release (Dulcolax (bisacodyl)) BEDTIME as directed 5 days #10 tabs aripiprazole 2 mg tablet 2 mg PO BEDTIME 30 days #30 tabs 11/12/23 aripiprazole 5 mg tablet 5 mg PO BEDTIME 30 days #30 tabs 11/12/23 fluvoxamine 50 mg tablet See Rx Instructions .Route 11/12/23 .COMPLEX #60 tabs hydroxyzine HCl 25 mg tablet 25 mg PO TID PRN Anxiety #30 tabs 11/12/23 fluconazole 150 mg tablet 150 mg PO Q3D 2 doses #2 tabs 10/20/24 metronidazole 0.75 % (37.5 mg/5 1 appful vaginal DAILY 5 days #70 10/20/24 gram) vaginal gel grams phenazopyridine 200 mg tablet 200 mg PO TID PRN dysuria 6 doses 10/20/24 #6 tabs sulfamethoxazole 800 1 tab PO BID 5 days #10 tabs 10/20/24 mg-trimethoprim 160 mg tablet acetaminophen 500 mg tablet 500 mg PO Q6H PRN fever or pain 01/07/25 (Tylenol Extra Strength) #14 tabs cyclobenzaprine 5 mg tablet 5 mg PO Q8H PRN pain (scale score 01/07/25 7-10) 5 days #14 tabs lidocaine 5 % topical patch 1 patch topical DAILY PRN pain #30 01/07/25 (Lidoderm) ea naproxen 500 mg tablet 500 mg PO BID PRN pain 10 days #20 01/07/25 tabs Allergies Allergy/AdvReac Type Severity Reaction Status Date / Time oxcarbazepine Allergy Unknown Verified 01/07/25 00:22 [From Trileptal] paprika Allergy Vomiting Verified 01/07/25 00:22 lurasidone [From Latuda] AdvReac Dystonia Verified 01/07/25 00:22 Review of Systems Review of Systems Yes all other systems are reviewed and are negative Constitutional: Reports as per [facility] Past Medical History Attestation statement: The following information was validated with the patient. Source: old records reviewed Medical History delivery delivered Hyperlipidemia Gout Hypertension Type II diabetes mellitus Social History Social History Household Members: Children Patient Tobacco Use Status: Current everyday Tobacco user Tobacco use type: Cigarette Cigarette Packs Per Day: 10 Years Smoked: 4 years Physical Exam ED Vital Signs: Vital Signs - 24 hr 01/07/25 00:18 01/07/25 02:48 01/07/25 06:07 Temperature 98.4 F 98.2 F 98.3 F Pulse Rate 89 84 83 Respiratory Rate 16 16 16 Blood Pressure 128/88 99/48 L 121/73 Pulse Oximetry 99 97 97 Oxygen Delivery Method Room Air Room Air Room Air 01/07/25 08:46 Temperature 98.3 F Pulse Rate 83 Respiratory Rate 16 Blood Pressure 121/73 Pulse Oximetry 97 Oxygen Delivery Method BMI result Body Mass Index 60.2 Const General: cooperative, healthy appearing and no acute distress Orientation/consciousness: patient oriented x3 Limitations: no limitations HENMT Head: Yes normal to inspection and Yes atraumatic Ears: hearing grossly normal bilaterally General nose exam: Normal external nose present Face and sinus: Yes normal facial exam Eyes General: appearance normal, both eyes and all related structures EOM: EOMs intact bilaterally Neck Neck: Yes normal visual inspection and Yes no meningeal signs Chest Chest palpation & inspection: normal inspection of the chest, no crepitus and no tenderness Resp Effort & Inspection: normal respiratory effort and no respiratory distress Auscultation: clear to auscultation bilaterally, no crackles and no wheezes Cardio Rate: regular rate Heart sounds: S1 normal heart sound present and S2 normal heart sound present GI Inspection: Yes normal to inspection Palpation (GI): Soft to palpation, nontender, no guarding and not rigid General: Yes no CVA tenderness Back/Spine/Pelvis Other: No midline cervical/thoracic/lumbar spinous tenderness/step-off or deformity Back: no CVA tenderness Skin Rashes: no rashes Wounds: no wounds Neuro General: patient oriented x3, tone normal and no meningeal signs Cranial nerves: Yes CN's II-XII intact bilaterally Gait exam (Neuro): Normal gait present Extrem General: Yes normal to inspection Course Course Course Narrative: -[id number]-- leukocytosis 12.3. Labs otherwise reassuring including negative hCG. - UA contaminated, with RBC/trace blood. not infected US abdomen limited IMPRESSION: 1. Mild hepatomegaly with diffusely increased hepatic echogenicity, findings suggestive of fatty infiltration and/or hepatocellular disease. No suspicious lesion. 2. Normal gallbladder and bile ducts. XR chest 2V IMPRESSION: Normal examination of the chest. Results discussed with patient including worrisome signs and symptoms and strict return precautions, and when to return to the emergency department. recommended close PCP/ GI follow-up. They verbalized understanding and feel safe for discharge at this time. Medical Decision Making Medical Decision Making [facility] Narrative: 39-year-old female with a past medical history of HLD, CAD, HTN, diabetes, presenting to the ED complaining intermittent right flank pain radiating to right side/RUQ x 4 days described as burning. Admits to associated bloating and diarrhea. On exam vital signs stable, NAD, nontoxic appearing, no reproducible chest wall tenderness/rash. Abdomen is soft and nontender. Lungs CTA. Concern for biliary colic vs renal colic Vs GERD vs gastritis vs MSK pain/strain. No evidence of zoster. lower suspicion for acute cholecystitis /lithiasis, pancreatitis, rib fracture, pneumonia, ACS/PE Plan: labs, UA, CXR, abdomen ultrasound, symptomatic treatment, re-evaluate Please refer to course for remaining clinical decision making, interpretation of labs/imaging results, and discussions with consultants and/or family members. Differential Diagnosis Differential Diagnoses: The differential diagnosis associated with the presentation includes As above Admission/Observation Consideration of admission/observation: Escalation of care including admission/observation considered Lab Data [facility] Lab Attestation statement: I reviewed the patient's lab results. 01/07/25 00:35 01/07/25 00:35 Labs: Lab Results 01/07/25 01/07/25 01/07/25 Range/Units 00:26 00:35 02:52 WBC 12.3 H (4.8-10.8) X10*3/uL RBC 4.53 (4.20-5.50) X10*6/uL Hgb 12.6 (12.0-16.0) g/dl Hct 37.4 (37.0-47.0) % MCV 82.6 (80.0-98.0) fL MCH 27.8 (27.0-33.0) pg MCHC 33.7 (31.0-35.0) g/dl RDW 13.8 (11.0-16.0) % Plt Count 265 D (160-400) X10*3/uL MPV 9.6 (9.4-12.3) fL Immature Gran % (Auto) 0.2 (0.0-0.4) % Neut % (Auto) 52.8 (45-73) % Lymph % (Auto) 38.3 (20-40) % Wolfe % (Auto) 7.7 (2-11) % Eos % (Auto) 0.6 (0-4) % Baso % (Auto) 0.4 (0-2) % Lymph # (Auto) 4.7 (1.2-4.9) X10*3/uL Wolfe # (Auto) 0.9 (0.1-1.2) X10*3/uL Eos # (Auto) 0.1 (0.0-0.4) X10*3/uL Baso # (Auto) 0.1 (0.0-0.2) X10*3/uL Abs Immat Gran (auto) 0.03 (0.00-0.03) X10*3/uL Absolute Neuts (auto) 6.5 (2.0-8.3) x10*3/uL Absolute Nucleated RBC 0.000 (0.0-0.012) X10*3/uL Nucleated RBC % (auto) 0.0 (0.0-0.2) /100WBC Sodium 137 (135-145) mmol/L Potassium 4.1 (3.3-5.1) mmol/L Chloride 107 (96-108) mmol/L Carbon Dioxide 22 (22-29) mmol/L Anion Gap 12 (12-20) BUN 13 (9-16) mg/dL Creatinine 0.74 (0.5-1.4) mg/dL Estim Creat Clear Calc 150.0 Estimated GFR > 60 POC Glucose 126 H (60-115) mg/dL Random Glucose 128 H (60-115) mg/dL Calcium 9.2 (8.4-10.2) mg/dL Magnesium 1.7 (1.6-2.6) mg/dL Total Bilirubin 0.2 (0.0-1.0) mg/dL Direct Bilirubin < 0.2 (0.0-0.5) mg/dL AST 18 (5-31) U/L ALT 17 (0-31) U/L Alkaline Phosphatase 66 (39-117) U/L Total Protein 7.8 (6.5-8.0) g/dL Albumin 4.0 (3.5-5.0) g/dL Lipase 17 (8-78) U/L Beta HCG, Quant < 2 mIU/mL Urine Color Yellow Urine Appearance Cloudy Urine pH 5.5 (5.0-9.0) Ur Specific [place] >= 1.030 H (1.005-1.025) Urine Protein Negative (Neg-Trace) mg/dL Urine Glucose (UA) Negative (Negative) mg/dL Urine Ketones Negative (Negative) mg/dL Urine Blood Trace H (Negative) Urine Nitrite Negative (Negative) Ur Leukocyte Esterase Negative (Negative) Urine RBC 3-5 H (0-2) /HPF Urine WBC 0-5 (0-5) /HPF Ur Squamous Epith Cells 11-20 (0-2) /HPF Urine Bacteria 2+ (None Seen) Hyaline Casts 0-2 (0-2) /LPF Independent Interpretation I performed an independent interpretation of an: Plain X-Ray Radiology Impression Discussion of test interpretation with radiology: I have reviewed the radiologist's reading. External Record Review External record reviewed: Inpatient record, Office record, Outpatient record, Prior outpatient labs, Prior outpatient radiology, Primary care record and Outside ED record Tests considered The following testing was considered but not selected: As above Prescription Management I considered prescription management with: Pain Medication Chronic Conditions Patient?s care impacted by: Other Social Determinants Patient?s care significantly limited by Social Determinants of Health including: Other Social Determinant of Health Medications Administered Discontinued Medications Generic Name Dose Route Start Last Admin Trade Name Freq PRN Reason Stop Dose Admin Al Hydroxide/Mg Hydroxide 30 ml 01/07/25 07:15 01/07/25 07:44 Magnesium Hydrox/Alum Hydrox 30 Ml Oral.Susp PO 01/07/25 07:16 30 ml ONCE ONE Administration Famotidine 20 mg 01/07/25 07:15 01/07/25 07:44 Famotidine 20 Mg Tablet PO 01/07/25 07:16 20 mg ONCE ONE Administration Ketorolac Tromethamine 30 mg 01/07/25 07:16 01/07/25 07:44 Ketorolac Tromethamine 30 Mg/Ml Vial IM 01/07/25 07:17 30 mg ONCE ONE Administration Discharge Plan Discharge Clinical Impression: Acute right-sided back pain, Fatty liver Patient Disposition: Home, Self-Care Instructions: Liver Disease Diet (DC), Back Pain (ED) Additional Instructions: Your blood work, ultrasound, and x-ray are reassuring Please have close follow up with your primary care doctor as well as Gastroenterology Your ultrasound does show some fatty liver, please avoid alcohol, fatty and greasy foods Flexeril is a muscle relaxer, take at night as it makes you drowsy, do not drive, drink alcohol, or operate machinery while taking it Naproxen as an anti-inflammatory / pain medication, take with food Lidoderm patches are numbing patches, apply to painful area In addition take Tylenol at home If symptoms persist or worsen, pain becomes unbearable, you developed urinary retention or incontinence, or weakness return to the ED Prescriptions: New lidocaine [Lidoderm] 5 % adhesive patch,medicated 1 patch topical DAILY MDD remove after 12 hours PRN (Reason: pain) Qty: 30 0RF Rx Instructions: leave on most painful area for up to 12 hrs cyclobenzaprine 5 mg tablet 5 mg PO Q8H PRN (Reason: pain (scale score 7-10)) 5 Days Qty: 14 0RF acetaminophen [Tylenol Extra Strength] 500 mg tablet 500 mg PO Q6H PRN (Reason: fever or pain) Qty: 14 0RF naproxen 500 mg tablet 500 mg PO BID PRN (Reason: pain) 10 Days Qty: 20 0RF No Action metformin 500 mg tablet 500 mg PO BID atorvastatin 20 mg tablet 20 mg PO DAILY thiamine HCl (vitamin B1) [Vitamin B-1] 100 mg Tablet 100 mg PO DAILY lisinopril-hydrochlorothiazide 20-25 mg tablet 1 tab PO DAILY folic acid 1 mg Tablet 1 mg PO DAILY pyridoxine (vitamin B6) [Vitamin B-6] 100 mg Tablet 100 mg PO DAILY naproxen 500 mg tablet 500 mg PO BID cholecalciferol (vitamin D3) [Vitamin D3] 25 mcg (1,000 unit) capsule 25 mcg PO DAILY ergocalciferol (vitamin D2) [Vitamin D2] 1,250 mcg (50,000 unit) capsule 1,250 mcg PO QWEEK Qty: 10 0RF benztropine 1 mg tablet 1 mg PO .QHS Qty: 30 0RF bisacodyl [Dulcolax (bisacodyl)] 5 mg tablet,delayed release (DR/EC) 5 - 10 mg PO BEDTIME 5 Days Qty: 10 0RF Rx Instructions: take with full glass of water aripiprazole 5 mg tablet 5 mg PO BEDTIME 30 Days Qty: 30 0RF aripiprazole 2 mg tablet 2 mg PO BEDTIME 30 Days Qty: 30 0RF fluvoxamine 50 mg tablet See Rx Instructions .ROUTE .COMPLEX Qty: 60 0RF Rx Instructions: take 1/2 tablet po QAM and 1 tablet po QHS for one week, then increase to 1 tablet po BID hydroxyzine HCl 25 mg Tablet 25 mg PO TID PRN (Reason: Anxiety) Qty: 30 0RF sulfamethoxazole-trimethoprim 800-160 mg tablet 1 tab PO BID 5 Days Qty: 10 0RF phenazopyridine 200 mg tablet 200 mg PO TID PRN (Reason: dysuria) Qty: 6 0RF metronidazole 0.75 % (37.5mg/5 gram) gel 1 appful vaginal DAILY 5 Days Qty: 70 0RF fluconazole 150 mg tablet 150 mg PO Q3D Qty: 2 0RF Rx Instructions: may repeat second dose 72 hrs after first dose if symptoms persist Referrals: [facility] [place] [facility] [Provider Group] Physician,Unknown J [Primary Care Provider] - Interventions: ED Discharge Assessment Last Done: 01/07/25 08:46 Discharge Date/Time: 01/07/25 08:47 Print Language: Danish
--- NOTE | 2025-01-07 07:24 | PC.NURSE ---
Resumed care of patient at 0700, PA at bedside attempting to wake patient from a deep sleep. PO medications ordered, this RN went to give however pt was being taken for scans, alerted pt when she got back I would medicate her.
[2025-01-07 07:25] LABS: Magnesium 1.7 mg/dL (1.6-2.6)
[2025-01-07] MEDS: Famotidine 20 MG TABLET PO (07:44)
[2025-01-07] MEDS: Ketorolac Tromethamine 30 MG/ML VIAL IM (07:44)
[2025-01-07] MEDS: Magnesium Hydrox/Alum Hydrox 30 ML ORAL.SUSP PO (07:44)
[2025-01-07 08:46] VITALS: BP 121/73; PULSE 83; RESP 16; TEMP 36.8; O2SAT 97
== END 2025-01-07 08:47 | disposition home or self-care (01) ==
PROVIDERS: Emergency Medicine; Physician Assistant; Emergency Provider Emergency Medicine
DX: R10.11 Right upper quadrant pain (principal); I25.10 Atherosclerotic heart disease of native coronary artery without angina pectoris; K76.0 Fatty (change of) liver, not elsewhere classified; R07.89 Other chest pain; R10.2 Pelvic and perineal pain; R14.0 Abdominal distension (gaseous); I10 Essential (primary) hypertension; F17.210 Nicotine dependence, cigarettes, uncomplicated; Z79.899 Other long term (current) drug therapy
CPT/HCPCS: 36415; 71046; 76705; 80053; 81001; 82248; 82947; 83690; 83735; 84702; 85025; 96372; 99284; J1885

== ENCOUNTER → 2025-01-07 06:54 | Outpatient (BNV) | payer MEDICARE, MEDICAID, SELFPAY | PROVIDERS: Emergency Provider Emergency Medicine; Visit Provider Radiology Diagnostic Radiology | DX: R10.11 Right upper quadrant pain (principal); R07.9 Chest pain, unspecified | CPT/HCPCS: 71046; 76705 ==

== ENCOUNTER 2025-09-06 15:47 | Emergency (ER) | payer MEDICARE, MEDICAID, SELFPAY ==
[2025-09-06 15:54] VITALS: BP 131/77; PULSE 79; RESP 16; TEMP 36.6; O2SAT 100; BMI 64.6
--- NOTE | 2025-09-06 15:56 | ED.GENADULT ---
HPI - General Adult General Chief complaint: Headache Stated complaint: headaches, sharp pain going down to neck Time Seen by Provider: 09/06/25 19:08 History of Present Illness ED Provider: Dr. Johnson HPI narrative: 39 y/o F patient; PMH OCD, bipolar disorder, PTSD; presents from home reporting right temporal headache pain that is sharp and electric in nature. Has been trialling tylenol and ibuprofen without significant relief. The patient recently stopped her Fluvoxamine. Otherwise denies: fever or chills, SOB, cough/congestion, nausea/vomiting, abdominal pain, chest pain, neck pain. Denies falls or trauma. Related Data Home Medications ?Medication ?Instructions ?Recorded ?Confirmed atorvastatin 20 mg tablet 20 mg PO DAILY 10/17/23 10/17/23 cholecalciferol (vitamin D3) 25 25 mcg PO DAILY 10/17/23 10/17/23 mcg (1,000 unit) capsule (Vitamin D3) Held on 11/12/23. Instructions: Resume on 01/27/24. complete weekly vitamin d2 88073 IU, then may restart daily vitamin D3 1000 IU daily folic acid 1 mg tablet 1 mg PO DAILY 10/17/23 10/17/23 lisinopril 20 1 tab PO DAILY 10/17/23 10/17/23 mg-hydrochlorothiazide 25 mg tablet metformin 500 mg tablet 500 mg PO BID 10/17/23 10/17/23 naproxen 500 mg tablet 500 mg PO BID 10/17/23 10/17/23 pyridoxine (vitamin B6) 100 mg 100 mg PO DAILY 10/17/23 10/17/23 tablet (Vitamin B-6) thiamine HCl (vitamin B1) 100 mg 100 mg PO DAILY 10/17/23 10/17/23 tablet (Vitamin B-1) Previous Rx's ?Medication ?Instructions ?Recorded ergocalciferol (vitamin D2) 1,250 1,250 mcg PO QWEEK #10 caps 10/23/23 mcg (50,000 unit) capsule (Vitamin D2) benztropine 1 mg tablet 1 mg PO .QHS as directed #30 tabs 11/04/23 bisacodyl 5 mg tablet,delayed 5 - 10 mg (1 - 2 x 5 mg) PO 11/11/23 release (Dulcolax (bisacodyl)) BEDTIME as directed 5 days #10 tabs aripiprazole 2 mg tablet 2 mg PO BEDTIME 30 days #30 tabs 11/12/23 aripiprazole 5 mg tablet 5 mg PO BEDTIME 30 days #30 tabs 11/12/23 fluvoxamine 50 mg tablet See Rx Instructions .Route 11/12/23 .COMPLEX #60 tabs hydroxyzine HCl 25 mg tablet 25 mg PO TID PRN Anxiety #30 tabs 11/12/23 fluconazole 150 mg tablet 150 mg PO Q3D 2 doses #2 tabs 10/20/24 metronidazole 0.75 % (37.5 mg/5 1 appful vaginal DAILY 5 days #70 10/20/24 gram) vaginal gel grams phenazopyridine 200 mg tablet 200 mg PO TID PRN dysuria 6 doses 10/20/24 #6 tabs sulfamethoxazole 800 1 tab PO BID 5 days #10 tabs 10/20/24 mg-trimethoprim 160 mg tablet acetaminophen 500 mg tablet 500 mg PO Q6H PRN fever or pain 01/07/25 (Tylenol Extra Strength) #14 tabs cyclobenzaprine 5 mg tablet 5 mg PO Q8H PRN pain (scale score 01/07/25 7-10) 5 days #14 tabs lidocaine 5 % topical patch 1 patch topical DAILY PRN pain #30 01/07/25 (Lidoderm) ea naproxen 500 mg tablet 500 mg PO BID PRN pain 10 days #20 01/07/25 tabs Allergies Allergy/AdvReac Type Severity Reaction Status Date / Time oxcarbazepine (From Allergy Unknown Verified 09/06/25 15:57 Trileptal) paprika Allergy Vomiting Verified 09/06/25 15:57 lurasidone (From Latuda) AdvReac Dystonia Verified 09/06/25 15:57 Review of Systems Review of Systems: Yes all other systems are reviewed and are negative Neurologic: Denies Abnormal speech present and Denies Sensory deficit (Neuro) [facility] Past Medical History Attestation statement: The following information was validated with the patient. Source: old records reviewed Medical History delivery delivered Hyperlipidemia Gout Hypertension Type II diabetes mellitus Social History Social History Household Members: Children Alcohol intake: former Patient Tobacco Use Status: Current everyday Tobacco user Tobacco use type: Cigarette Cigarette Packs Per Day: 10 Years Smoked: 4 years Smoked in Last 30 Days: Yes Use of substances other than those prescribed or required for medical reasons: No Advance Directives: No Advance Directives Information Provided: No Do you have a plan to hurt others: No Plan Physical Exam ED Vital Signs: Vital Signs - 24 hr 09/06/25 15:54 Temperature 97.8 F Pulse Rate 79 Respiratory Rate 16 Blood Pressure 131/77 Pulse Oximetry 100 Oxygen Delivery Method Room Air BMI result Body Mass Index 64.6 Patient is afebrile and hemodynamically stable. Const General: cooperative and no acute distress Orientation/consciousness: patient oriented x3 HENMT Head: Yes normal to inspection and Yes atraumatic Eyes General: appearance normal, both eyes and all related structures Conjunctivae: conjunctivae normal Pupils: Equal, round and reactive pupils present EOM: EOMs intact bilaterally Neck Neck: Yes normal visual inspection, Yes full ROM, Yes supple and No tender Chest Chest palpation & inspection: normal inspection of the chest and normal palpation of entire chest wall Resp Effort & Inspection: normal respiratory effort, able to speak in complete sentences, no cough and no respiratory distress Auscultation: clear to auscultation bilaterally Cardio Rate: regular rate Rhythm: regular rhythm Peripheral pulses: Peripheral pulses 2+ throughout GI Inspection: No Abdominal wall edema and No distended Palpation (GI): Soft to palpation, not firm, nontender, no guarding and not rigid Auscultation: normal bowel sounds Back/Spine/Pelvis Back: No back tenderness Neuro General: patient oriented x3 Cranial nerves: Yes Equal, round and reactive pupils present Cognition (Neuro): normal cognition Speech: No Abnormal speech present Motor exam (neuro): 5/5 motor strength present throughout Sensory Exam: No Sensory deficit (Neuro) Course Course Course Narrative: Rapid medical examination performed in triage by Tiffany Lewis PA-C: Patient is a 39 year old assigned female at presenting to the emergency department with headache. Patient states she was recently tapered down / off of Fluvoxamine and is having a headache. Patient states that she is unsure if this is from the medication or not. Detailed physical exam and review of systems are deferred to the fabric normalizer. Labs ordered. Patient placed back in the waiting room pending room availability and results. Reevaluation(s) Reevaluation #1: Patient is afebrile and hemodynamically stable. Reviewed triage labs. No significant leukocytosis. Mild anemia 11.6, baseline approx 12. HCG is negative. Providing pain control with tylenol, toradol, benadryl, reglan. I suspect patient may be experiencing sensory symptoms related to her discontinuation of the fluvoxamine approx 4 days ago. Will check inflammatory markers. If negative plan for her to follow up with psychiatrist who had been titrating the medication. CRP is not significantly elevated. I considered CT imaging but patient's exam is neurologically intact and I have low suspicion for intra-cranial process. Plan: Discharge to home Condition: Stable Medications Administered Discontinued Medications Generic Name Dose Route Start Last Admin Trade Name Freq PRN Reason Stop Dose Admin Acetaminophen 975 mg 09/06/25 19:13 09/06/25 19:38 Acetaminophen 325 Mg Tablet PO 09/06/25 19:14 975 mg ONCE ONE Administration Diphenhydramine HCl 25 mg 09/06/25 19:13 09/06/25 19:39 Diphenhydramine Hcl 25 Mg Capsule PO 09/06/25 19:14 25 mg ONCE ONE Administration Ketorolac Tromethamine 30 mg 09/06/25 19:13 09/06/25 19:39 Ketorolac Tromethamine 30 Mg/Ml Vial IM 09/06/25 19:14 30 mg ONCE ONE Administration Metoclopramide HCl 10 mg 09/06/25 19:13 09/06/25 19:38 Metoclopramide Hcl 10 Mg Tablet PO 09/06/25 19:14 10 mg ONCE ONE Administration Medical Decision Making Lab Data 09/06/25 16:05 09/06/25 16:05 Labs: Lab Results 09/06/25 Range/Units 16:05 WBC 9.4 (4.8-10.8) X10*3/uL RBC 4.39 (4.20-5.50) X10*6/uL Hgb 11.6 L (12.0-16.0) g/dl Hct 35.9 L (37.0-47.0) % MCV 81.8 (80.0-98.0) fL MCH 26.4 L (27.0-33.0) pg MCHC 32.3 (31.0-35.0) g/dl RDW 14.8 (11.0-16.0) % Plt Count 277 (160-400) X10*3/uL MPV 9.5 (9.4-12.3) fL Immature Gran % (Auto) 0.2 (0.0-0.4) % Neut % (Auto) 41.0 L (45-73) % Lymph % (Auto) 50.9 H (20-40) % [place] % (Auto) 6.4 (2-11) % Eos % (Auto) 1.0 (0-4) % Baso % (Auto) 0.5 (0-2) % Lymph # (Auto) 4.8 (1.2-4.9) X10*3/uL [place] # (Auto) 0.6 (0.1-1.2) X10*3/uL Eos # (Auto) 0.1 (0.0-0.4) X10*3/uL Baso # (Auto) 0.1 (0.0-0.2) X10*3/uL Abs Immat Gran (auto) 0.02 (0.00-0.03) X10*3/uL Absolute Neuts (auto) 3.9 (2.0-8.3) x10*3/uL Absolute Nucleated RBC 0.000 (0.0-0.012) X10*3/uL Nucleated RBC % (auto) 0.0 (0.0-0.2) /100WBC Sodium 139 (135-145) mmol/L Potassium 4.2 (3.3-5.1) mmol/L Chloride 105 (96-108) mmol/L Carbon Dioxide 25 (22-29) mmol/L Anion Gap 13 (12-20) BUN 13 (9-16) mg/dL Creatinine 0.73 (0.5-1.4) mg/dL Estim Creat Clear Calc 153.8 Estimated GFR > 60 Random Glucose 122 H (60-115) mg/dL Calcium 9.6 (8.4-10.2) mg/dL Magnesium 1.8 (1.6-2.6) mg/dL Total Bilirubin 0.2 (0.0-1.0) mg/dL AST 18 (5-31) U/L ALT 14 (0-31) U/L Alkaline Phosphatase 63 (39-117) U/L C-Reactive Protein 2.28 H (< or = 0.50) mg/dL Total Protein 7.3 (6.5-8.0) g/dL Albumin 4.2 (3.5-5.0) g/dL TSH 1.70 (0.32-4.0) uIU/mL Beta HCG, Quant < 2 mIU/mL Discharge Plan Discharge Clinical Impression: Headache Patient Disposition: Home, Self-Care Instructions: Acute Headache (ED) Additional Instructions: You were seen for electric shocks to the right side of your head since stopping your SSRI 4 days ago. We discussed calling your prescribing/titrating doctor to discuss these side effects. Prescriptions: No Action metformin 500 mg tablet 500 mg PO BID atorvastatin 20 mg tablet 20 mg PO DAILY thiamine HCl (vitamin B1) [Vitamin B-1] 100 mg Tablet 100 mg PO DAILY lisinopril-hydrochlorothiazide 20-25 mg tablet 1 tab PO DAILY folic acid 1 mg Tablet 1 mg PO DAILY pyridoxine (vitamin B6) [Vitamin B-6] 100 mg Tablet 100 mg PO DAILY naproxen 500 mg tablet 500 mg PO BID cholecalciferol (vitamin D3) [Vitamin D3] 25 mcg (1,000 unit) capsule 25 mcg PO DAILY ergocalciferol (vitamin D2) [Vitamin D2] 1,250 mcg (50,000 unit) capsule 1,250 mcg PO QWEEK Qty: 10 0RF benztropine 1 mg tablet 1 mg PO .QHS Qty: 30 0RF bisacodyl [Dulcolax (bisacodyl)] 5 mg tablet,delayed release (DR/EC) 5 - 10 mg PO BEDTIME 5 Days Qty: 10 0RF Rx Instructions: take with full glass of water aripiprazole 5 mg tablet 5 mg PO BEDTIME 30 Days Qty: 30 0RF aripiprazole 2 mg tablet 2 mg PO BEDTIME 30 Days Qty: 30 0RF fluvoxamine 50 mg tablet See Rx Instructions .ROUTE .COMPLEX Qty: 60 0RF Rx Instructions: take 1/2 tablet po QAM and 1 tablet po QHS for one week, then increase to 1 tablet po BID hydroxyzine HCl 25 mg Tablet 25 mg PO TID PRN (Reason: Anxiety) Qty: 30 0RF sulfamethoxazole-trimethoprim 800-160 mg tablet 1 tab PO BID 5 Days Qty: 10 0RF phenazopyridine 200 mg tablet 200 mg PO TID PRN (Reason: dysuria) Qty: 6 0RF metronidazole 0.75 % (37.5mg/5 gram) gel 1 appful vaginal DAILY 5 Days Qty: 70 0RF fluconazole 150 mg tablet 150 mg PO Q3D Qty: 2 0RF Rx Instructions: may repeat second dose 72 hrs after first dose if symptoms persist lidocaine [Lidoderm] 5 % adhesive patch,medicated 1 patch topical DAILY MDD remove after 12 hours PRN (Reason: pain) Qty: 30 0RF Rx Instructions: leave on most painful area for up to 12 hrs cyclobenzaprine 5 mg tablet 5 mg PO Q8H PRN (Reason: pain (scale score 7-10)) 5 Days Qty: 14 0RF acetaminophen [Tylenol Extra Strength] 500 mg tablet 500 mg PO Q6H PRN (Reason: fever or pain) Qty: 14 0RF naproxen 500 mg tablet 500 mg PO BID PRN (Reason: pain) 10 Days Qty: 20 0RF Print Language: Citizen [place]
[2025-09-06 16:10] LABS: MANUAL DIFF FLAG NO
[2025-09-06 16:21] LABS: Hematocrit 35.9 % (37.0-47.0); Hemoglobin 11.6 g/dl (12.0-16.0); Imm Gran Abs Auto 0.02 X10*3/uL (0.00-0.03); Imm Gran Pct Auto 0.2 % (0.0-0.4); Lymphocytes Absolute Auto 4.8 X10*3/uL (1.2-4.9); Mean Corpuscular HGB Conc 32.3 g/dl (31.0-35.0); Mean Corpuscular Hemoglobin 26.4 pg (27.0-33.0); Mean Corpuscular Volume 81.8 fL (80.0-98.0); NRBC Abs Auto 0.000 X10*3/uL (0.0-0.012); NRBC Pct Auto 0.0 /100WBC (0.0-0.2); Platelet Count 277 X10*3/uL (160-400); Red Blood Count 4.39 X10*6/uL (4.20-5.50); White Blood Count 9.4 X10*3/uL (4.8-10.8)
[2025-09-06 16:32] LABS: Alanine Aminotransferase 14 U/L (0-31); Albumin Level 4.2 g/dL (3.5-5.0); Alkaline Phosphatase 63 U/L (39-117); Anion Gap 13 (12-20); Aspartate Amino Transferase 18 U/L (5-31); Blood Urea Nitrogen 13 mg/dL (9-16); Calcium 9.6 mg/dL (8.4-10.2); Carbon Dioxide 25 mmol/L (22-29); Chloride 105 mmol/L (96-108); Creatinine Clr Calc Pharmacy 153.8; Estimated Glomerular Filt Rate > 60; Magnesium 1.8 mg/dL (1.6-2.6); Potassium 4.2 mmol/L (3.3-5.1); Sodium 139 mmol/L (135-145); Total Protein 7.3 g/dL (6.5-8.0)
--- OUTSIDE RECORDS SUMMARY | 2025-09-06 19:36 | XMS_ITS | Clinical Summary ---
Author Organization [facility] Address [address] [place] [address] Care Team Providers Care Rfid Analyst Name Role Phone Valarie Dominguez PA-C Primary [...] 1 Capsule by mouth once a week 3 Active hydrOXYzine HCL (ATARAX) 25 mg tablet 4 Active blood pressure monitorIndicatio ns:Hx of essential hypertension Large cuff. Use to check blood pressure daily and as needed. Dx: I10 Meds: HCTZ LOS: 99 Pt needs automatic blood pressure monitor because it is extremely difficult to obtain a manual blood pressure on self. Additionally, pt is not medically trained to use a stethoscope or how to read a sphygmometer. 1 Kit 4 Active lamoTRIgine (LAMICTAL) 200 mg tablet Authorized by: GRETCHEN SHERMAN 4 Active ketoconazole (NIZORAL) 2 % shampooIndicatio ns:Seborrheic dermatitis Use once weekly as needed for dandruff 240 mL 2 5 Active alcohol swabsIndications :Type 2 diabetes mellitus without complication, without long-term current use of insulin Use to test blood sugar three daily. 100 Each 11 5 Active atorvastatin (LIPITOR) 20 mg tabletIndication s:Essential hypertension Take 1 Tablet by mouth once daily 90 Tablet 1 5 Active blood sugar diagnostic (BLOOD GLUCOSE TEST) stripsIndication s:Type 2 diabetes mellitus without complication, without long-term current use of insulin Use to test blood sugar three daily. (OneTouch Ultra) 100 Each 11 5 Active lancets 33 gaugeIndications :Type 2 diabetes mellitus without complication, without long-term current use of insulin Use to test blood sugar three daily. (OneTouch Delica 33G) 100 Each 11 5 Active ONETOUCH ULTRA2 METER monitoring kitIndications:T ype 2 diabetes mellitus without complication, without long-term current use of insulin daily USE TO TEST BLOOD GLUCOSE THREE TIMES DAILY 1 Each 5 Active nicotine (NICODERM, STEP 3) 7 mg/24 hr patchIndications :Encounter for smoking cessation counseling Place 1 Patch onto the skin once daily (every 24 hours). 28 Patch 2 5 Active nicotine, polacrilex, (NICORETTE) 4 mg gumIndications:E ncounter for smoking cessation counseling Take 1 Each by mouth as needed for smoking cessation. 110 Each 5 Active amlodipine-olmes tashia (GIACOMO) 5-20 mg per tabletIndication s:Essential hypertension TAKE 1 TABLET BY MOUTH EVERY DAY 90 Tablet 1 5 Active gabapentin (NEURONTIN) 100 mg capsule TAKE ONE (1) TO TWO (2) CAPSULES BY MOUTH AT BEDTIME Authorized by: BRITT ZAVALA. 5 Active fluvoxaMINE (LUVOX) 50 mg tablet Take 50 mg by mouth every morning. 5 Active lamoTRIgine (LAMICTAL) 25 mg tablet TAKE 2 TABLETS BY MOUTH EVERY DAY IN THE MORNING Authorized by: BRITT ZAVALA. 5 Active ibuprofen 800 mg tabletIndication s:Flank pain,Right upper quadrant pain Take 1 Tablet by mouth 3 (three) times daily as needed for pain. 90 Tablet 5 Active acetaminophen (TYLENOL) 500 mg tabletIndication s:Flank pain,Right upper quadrant pain Take 2 Tablets by mouth every 6 (six) hours as needed for pain. 500 Tablet 5 Active metFORMIN (GLUCOPHAGE) 1,000 mg tabletIndication s:Type 2 diabetes mellitus without complication, without long-term current use of insulin TAKE 1 TABLET BY MOUTH TWICE DAILY WITH A MEAL 180 Tablet 1 5 Active dorzolamide (TRUSOPT) 2 % ophthalmic solution INSTILL 1 DROP BOTH EYES 3 TIMES A DAY 5 Active fluvoxaMINE (LUVOX) 25 mg tablet Take 25 mg by mouth once daily. Active Active Problems Problem Noted Date Diagnosed Date Diminished ovarian reserve 08/26/2025 Knee pain, bilateral 08/16/2025 Palpable mass of soft tissue of lower extremity 08/16/2025 Abnormal uterine bleeding (AUB) 09/24/2023 Flat foot 07/18/2023 Foot arch pain 07/18/2023 Essential hypertension 02/20/2022 Anxiety 09/04/2021 Back spasm 09/04/2021 Low back strain 09/04/2021 Vitamin D deficiency 11/06/2019 Type 2 diabetes mellitus wit hout complication, without long-term current use of insulin 11/06/2019 Cigarette nicotine dependence without complicati on 12/17/2018 Bipolar disorder, current episode mixed, moderat e 11/26/2017 Overview (11/26/2017): Recently hospitalized inpatient for [...] (BMI) of 60.0 to 69.9 in adult 04/21/2015 Depression with anxiety 04/21/2015 Overview (02/26/2018): Followed by Ana Girard (psych) and therapist Shari at [address] [place] [address] MICHAEL Dean Currently on Ativan prn. Did [...] Encounters Date Type Department Care Team Description 08/26/2025 11:20 AM EDT Office Visit [facility] [address] [place] [phone] Valarie Dominguez PA-C 07/22/2025 3:40 PM EDT Office Visit [address] [phone] Vasu Romero PA-C 07/21/2025 Results Follow-Up [address] [phone] Neto Ureña PharmD 07/08/2025 3:40 PM EDT Office Visit [address] [phone] Neto Ureña PharmD from Last 3 Months Immunizations Immunization Administration Dates Next Due Hpv, Unspecified 08/19/2008, 8,04/20/2008,04/20/2008,02/06/2008,01/26 TDAP 06/20/2017,06/20/2017 Family History Medical History Relation Name Comments Mental illness Brother Diabetes Father Hypertension Father Hypertension Mother Mental illness Sister Relation Name Status Comments Brother Alive Father Mother Alive Sister Alive Social History Tobacco Use Types Packs/Day Years Used Date Smoking Tobacco: Heavy Smoker Cigarettes Smokeless Tobacco: Never Tobacco Cessation:Ready to Q uit: No; Counseling Given: Yes Comments:6-7 a day Alcohol Use Standard Drinks/Week Comments Not Currently 12 (1 standard drink = 0.6 oz pu re alcohol) every other day Social Connections Answer Date Recorded How often do you feel lonely or isolated from th ose around you? 1 02/17/2025 Financial Resource Strain Answer Date R ecorded Hard to pay for: Food 1 02/17/2025 Stress Answer Date Recorded Do you feel these kinds of stress these days? 1 02/17/2025 Physical Activity Answer Date Recorded Physical Activity 0 04/15/2020 Food Insecurity Answer Date Recorded Hard to pay for: Food 1 02/17/2025 Transportation Needs Answer Date Record ed Hard to pay for: Transportation 1 02/17/2025 Housing Stability Answer Date Recorded Hard to pay for: Rent/Mortgage payment 1 02/17/2025 Safety and Environment Answer Date Prasanna rded How often does anyone, inclu ding family and friends, physically hurt you? 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 [employer] Not on file Not on fi le Not on file Last Filed Vital Signs Vital Sign Reading Time Taken Comments Blood Pressure 126/86 08/26/2025 11:28 AM EDT Pulse 102 08/26/2025 11:28 AM EDT Temperature 36.7 C (98 F) 08/26/2025 11:28 AM EDT Respiratory Rate 18 08/26/2025 11:2 8 AM EDT Oxygen Saturation 98% 08/26/2025 11: 28 AM EDT Inhaled Oxygen Concentration - - Weight 162.7 kg (358 lb 9.6 oz) 025 11:28 AM EDT Height 157.5 cm (5' 2 ) 08/26/2025 11:2 8 AM EDT Body Mass Index 65.59 08/26/2025 11:28 AM EDT Plan of Treatment Upcoming Encounters Date Type Department Care Team (Late st Contact Info) Description 09/28/2025 9:20 AM EST Office Visit [facility] [address] [place] [phone] Neto Ureña, PharmD [address] [place] [address] Health Maintenance Due Date Last Done Comments Dental Examination 1985 HPV Screening (self-collect) 1985 HPV Screening 1985 Medicare Annual Wellness Visit 2003 Imm-Pneumococcal (1 of 2 - PCV) 2004 Urine Albumin Creatinine Rat io Screening 11/18/2020 11/18/2019 Pap + HPV 04/08/2023 04/08/2018 Diabetes Foot Exam 04/19/2024 04/19/2023, 11/18/2019 [id number] ( season) 2025 Hemoglobin A1c 10/19/2025 07/20/2025, 02/25, 09/29/2024, Additional history exists Depression Monitoring 11/26/2025 08/26/2025 , 02/17/2025, 12/02/2024, Additional history exists Retinopathy Screening 12/28/2025 12/28/2024, 025 Relationship Safety Screening/Counseling 02/17/2026 02/17/2025, 01/07/2024, 10/11/2022, Additional history exists Lipid Screening 03/11/2026 03/11/2025, 12/2023, 02/17/2024, Additional history exists Serum Creatinine 03/11/2026 03/11/2025, 12/2023, 02/17/2024, Additional history exists Cervical Cancer Screening 06/07/2026 Pap Smear 06/07/2026 06/07/2023, 03/28, 02/25/2014 (Managed by Outside Provider) Anxiety Screening 08/26/2026 08/26/2025 Tobacco Cessation Counseling (#1) 08/26/2026 025, 02/27/2024 Imm-DTaP/Tdap/Td (3 - Td or Tdap) 06/20/2027 017, 06/20/2017 Imm-RSV (adult) (1 - 1-dose 75+ series) 2060 Imm-HPV Completed 08/19/2008, 07/29, 04/20/2008, Additional history exists Hepatitis C Screening Completed 06/23/2015 HIV Screening Completed 11/05/2019 Alcohol and Drug Screen Completed 08/26/20, 02/17/2025, 12/02/2024, Additional history exists Cervical Ablation/Cold-Knife Conization Discontinued Cervical Cryotherapy Discontinued Colposcopy Discontinued Excision/Leep Discontinued HPV Genotyping Discontinued Imm-Hepatitis B Discontinued Imm-Influenza Discontinued Vaginal Pap Discontinued Vulvoscopy Discontinued Procedures Procedure Name Priority Date/Time Associated Diagnosis Comments IMAGING SCANNED DOCUMENT 08/16/2025 3:00 AM EDT RFLX - REFLEXIVE URINE CULTURE Routine 07/22/2025 4:49 PM EDT Flank pain Right upper quadrant pain URINALYSIS, COMPLETE W/REFLEX TO CULTURE Routine 07/22/2025 4:49 PM EDT Flank pain Right upper quadrant pain URINALYSIS, MULTISTIX (POCT) Routine 07/22/2025 4:11 PM EDT Flank pain HGBA1C W/MPG Routine 07/20/2025 9:30 AM EDT Type 2 diabetes mellitus without complication, without long-term current use of insulin ([facility]) OTHER ORDERS SCANNED DOCUMENT 07/19/2025 3:00 AM EDT GLUCOSE, BLOOD BY GLUCOSE MONITORING DEVICE (CLIA WAIVED)POCT Routine 07/08/2025 4:01 PM EDT Type 2 diabetes mellitus without complication, without long-term current use of insulin ([facility]) REFERRAL FOR ECHOCARDIOGRAM Routine 06/18/2025 3:00 AM EDT Palpitations COMPREHENSIVE METABOLIC PANEL Routine 03/11/2025 10:26 AM EDT Type 2 diabetes mellitus without complication, without long-term current use of insulin ([facility]) LIPID PANEL Routine 03/11/2025 10:26 AM EDT Type 2 diabetes mellitus without complication, without long-term current use of insulin ([facility]) REFERRAL TO OPHTHALMOLOGY Routine 12/28/2024 3:00 AM EST Type 2 diabetes mellitus without complication, without long-term current use of insulin ([facility]) PAP SMEAR 06/07/2023 3:00 AM EDT MICROALBUMIN/CREATININ E RATIO, URINE, RANDOM Routine 11/18/2019 3:39 PM EST Type 2 diabetes mellitus without complication, without long-term current use of insulin ([facility]) ANTIBODY HIV-1&HIV-2 SINGLE RESULT Routine 11/05/2019 1:40 PM EST Pulmonary vascular congestion HEPATITIS A,B,C PANEL Routine 06/23/2015 10:16 AM EDT Routine adult health maintenance from Last 3 Months or Most Recently Relevant to Health Maintenance Results * IMAGING SCANNED DOCUMENT (08/16/2025 3:00 AM EDT) 08/16/2025 3:00 AM EDT [facility] SCAN IMAGING Final Result * (ABNORMAL) URINALYSIS, COMPLETE W/REFLEX TO CULTURE Urine Routine (07/22/2025 4:49 PM EDT) COLOR YELLOW YELLOW 07/23/2025 4:26 AM EDT [employer] [facility] APPEARANCE CLEAR CLEAR 07/23/2025 4:26 AM EDT [employer] [facility] SPECIFIC GRAVITY 1.026 1.001 - 1.035 07/23/2025 4:26 AM EDT [employer] [facility] URINE PH 5.5 5.0 - 8.0 07/23/2025 4:26 AM EDT [employer] [facility] GLUCOSE NEGATIVE NEGATIVE 07/23/2025 4:26 AM EDT [employer] [facility] BILIRUBIN NEGATIVE NEGATIVE 07/23/2025 4:26 AM EDT [employer] [facility] KETONES NEGATIVE NEGATIVE 07/23/2025 4:26 AM EDT [employer] [facility] OCCULT BLOOD NEGATIVE NEGATIVE 07/23/2025 4:26 AM EDT [employer] [facility] URINE PROTEIN NEGATIVE NEGATIVE 07/23/2025 4:26 AM EDT [employer] [facility] NITRITE NEGATIVE NEGATIVE 07/23/2025 4:26 AM EDT [employer] [facility] LEUKOCYTE ESTERASE NEGATIVE NEGATIVE 07/23/2025 4:26 AM EDT [employer] [facility] URINE LEUKOCYTES 0-5 0 - 5 /HPF 07/23/2025 4:26 AM EDT [employer] [facility] RBC 0-2 0 - 2 /HPF 07/23/2025 4:26 AM EDT [employer] [facility] SQUAMOUS EPITHELIAL CELLS 10-20(A) < OR = 5 /HPF 07/23/2025 4:26 AM EDT [employer] [facility] BACTERIA FEW(A) NONE SEEN /HPF 07/23/2025 4:26 AM EDT [employer] [facility] HYALINE CAST NONE SEEN NONE SEEN /LPF 07/23/2025 4:26 AM EDT [employer] [facility] SEE NOTE SEE NOTE 07/23/2025 4:26 AM EDT [employer] [facility] Urine Urine specimen / Unknown 07/22/2025 4:49 PM EDT 07/23/2025 3:57 AM EDT Narrative [employer] [facility] - 07/23/2025 4:30 AM EDT This urine was analyzed for the presence of WBC, RBC, bacteria, casts, and other formed elements. Only those elements seen were reported. . . us Vasu Romero PA-C LAB URINE AMBULATORY Final Re sult [employer] [address] [address], [employer] [address] [address] * RFLX - REFLEXIVE URINE CULTURE Routine (07/22/2025 4:49 PM EDT) REFLEXIVE URINE CULTURE SEE NOTE 07/23/2025 4:26 AM EDT [facility] 07/22/2025 4:49 PM EDT 07/23/2025 3:57 AM EDT Narrative [facility] - 07/23/2025 4:30 AM EDT NO CULTURE INDICATED us Vasu WILD-C LAB - MICROBIOLOGY AMBULATORY Final Result Performing Organization Address [facility] [address] [facility]/ZIP Co de Phone Number [facility] [address] [address], [employer] [address] [address] * (ABNORMAL) URINALYSIS, MULTISTIX (POCT) Urine Routine (07/22/2025 4:11 PM EDT) URINE GLUCOSE NEGATIVE NEGATIVE [facility] URINE BILIRUBIN NEGATIVE NEGATIVE [facility] URINE KETONES NEGATIVE NEGATIVE [facility] URINE SPECIFIC GRAVITY 1.030(A) <=1.005 - >=1.030 [facility] URINE BLOOD MODERATE(A) NEGATIVE [facility] URINE PH 5.5 5.0 - 8.5 [facility] URINE PROTEIN Negative Negative [facility] URINE UROBILINOGEN 0.2 0.2 - 1.0 E.U./dL [facility] URINE NITRITE NEGATIVE NEGATIVE [facility] URINE LEUKOCYTES NEGATIVE NEGATIVE [facility] URINE COLOR LIGHT YELLOW STRAW, YELLOW [facility] ODOR URINE Normal Normal [facility] CLARITY OF URINE CLEAR CLEAR [facility] Urine Urine specimen / Unknown 07/22/2025 4:11 PM EDT us Vasu Romero KATHRYNC LAB URINE AMBULATORY Final Re sult [facility] PO[facility] * (ABNORMAL) HGBA1C W/MPG Routine (07/20/2025 9:30 AM EDT) HEMOGLOBIN A1C 7.9(H) <5.7 % 07/21/2025 4:25 AM EDT [employer] [facility] MEAN PLASMA GLUCOSE 204 mg/dL (calc) 07/21/2025 4:25 AM EDT [employer] [facility] Blood Blood / Unknown 07/20/2025 9 :30 AM EDT 07/21/2025 2:39 AM EDT Narrative [employer] [facility] - 07/21/2025 4:34 AM EDT FASTING:NO For someone without known diabetes, a hemoglobin A1c value of 6.5% or greater indicates that they may have diabetes and this should be confirmed with a follow-up test. . For someone with known diabetes, a value <7% indicates that their diabetes is well controlled and a value greater than or equal to 7% indicates suboptimal control. A1c targets should be individualized based on duration of diabetes, age, comorbid conditions, and other considerations. . Currently, no consensus exists regarding use of hemoglobin A1c for diagnosis of diabetes for children. . [employer] Antil PharmD LAB - BLOOD DRAW Final Resu lt [employer] [address] [place] [id number], [employer] [address] [address] * OTHER ORDERS SCANNED DOCUMENT (07/19/2025 3:00 AM EDT) 07/19/2025 3:00 AM EDT Valarie Dominguez PA-C SCAN OTHER ORDERS Final Resu lt * (ABNORMAL) GLUCOSE, BLOOD BY GLUCOSE MONITORING DEVICE (CLIA WAIVED)POCT Routine (07/08/2025 4:01 PM EDT) GLUCOSE 158(A) 70 - 100 mg/dL [facility] PO[facility] Capillary Blood Blood / Unknown 4:01 PM EDT [employer] An[employer] PharmD LAB - BLOOD DRAW Final Resu lt [facility] POCT * REFERRAL FOR ECHOCARDIOGRAM (06/18/2025 3:00 AM EDT) 06/18/2025 3:00 AM EDT Vasu Romero PA-C REFERRAL CARD Final Result * (ABNORMAL) LIPID PANEL (03/11/2025 10:26 AM EDT) CHOLESTEROL, TOTAL 158 <200 mg/dL [employer] [facility] HDL CHOLESTEROL 41(L) > OR = 50 mg/dL [facility] TRIGLYCERIDES 76 <150 mg/dL [facility] LDL-CHOLESTEROL 100(H) 99 mg/dL (calc) [facility] Comment: Reference range: <100 Desirable range <100 mg/dL for primary prevention; <70 mg/dL for patients with CHD or diabetic patients with > or = 2 CHD risk factors. LDL-C is now calculated using the Aries-Rajput calculation, which is a validated novel method providing better accuracy than the Friedewald equation in the estimation of LDL-C. Aries SS et al. HAILEE. 2013;310(19): 5964-1722 (http://education.Sophono/faq/ZEN862) CHOL/HDLC RATIO 3.9 <5.0 (calc) [facility] NON-HDL CHOLESTEROL 117 <130 mg/dL (calc) [facility] Comment: For patients with diabetes plus 1 major ASCVD risk factor, treating to a non-HDL-C goal of <100 mg/dL (LDL-C of <70 mg/dL) is considered a therapeutic option. Blood Blood / Unknown 03/11/2025 1 0:26 AM EDT 03/11/2025 10:27 AM EDT Narrative [employer] - 03/12/2025 9:19 AM EDT FASTING:NO PATIENT UNABLE TO VOID; ADVISED TO RETURN FOR COLLECTION. Valarie Dominguez PA-C LAB - BLOOD DRAW Final Resul t [employer] [address] [address], [employer] [address] [address] * (ABNORMAL) COMPREHENSIVE METABOLIC PANEL (03/11/2025 10:26 AM EDT) GLUCOSE 155(H) 65 - 139 mg/dL [employer] [facility] Comment: Non-fasting reference interval UREA NITROGEN (BUN) 18 7 - 25 mg/dL [employer] [facility] CREATININE (blood) 0.81 0.50 - 0.97 mg/dL [employer] [facility] EGFR 95 > OR = 60 mL/min/1. 73m2 [employer] [facility] BUN/CREATININE RATIO SEE NOTE: [employer] [facility] Comment: Not Reported: BUN and Creatinine are within reference range. SODIUM 139 135 - 146 mmol/L [employer] POTASSIUM 4.6 3.5 - 5.3 mmol/L [employer] CHLORIDE 101 98 - 110 mmol/L [employer] [facility] CARBON DIOXIDE 27 20 - 32 mmol/L [employer] CALCIUM 9.0 8.6 - 10.2 mg/dL [employer] [facility] PROTEIN, TOTAL 7.1 6.1 - 8.1 g/dL [employer] [facility] ALBUMIN 4.2 3.6 - 5.1 g/dL [employer] [facility] GLOBULIN 2.9 1.9 - 3.7 g/dL (calc) [employer] [facility] ALBUMIN/GLOBULI N RATIO 1.4 1.0 - 2.5 (calc) [employer] [facility] BILIRUBIN, TOTAL 0.3 0.2 - 1.2 mg/dL [employer] [facility] ALKALINE PHOSPHATASE 68 31 - 125 U/L [employer] [facility] AST 15 10 - 30 U/L [employer] [facility] ALT 17 6 - 29 U/L [employer] [facility] Blood Blood / Unknown 03/11/2025 1 0:26 AM EDT 03/11/2025 10:27 AM EDT Narrative [employer] [facility] - 03/12/2025 9:19 AM EDT FASTING:NO PATIENT UNABLE TO VOID; ADVISED TO RETURN FOR COLLECTION. us Valarie Dominguez PA-C LAB - BLOOD DRAW Final Resul t [employer] [facility] [address] [address], [place] [facility] [address] [place] [address] * REFERRAL TO OPTHALMOLOGY (12/28/2024 3:00 AM EST) 12/28/2024 3:00 AM EST us Valarie Dominguez PA-C REFERRAL Final Result * PAP SMEAR (06/07/2023 3:00 AM EDT) 06/07/2023 3:00 AM EDT us Valarie Dominguez PA-C LAB - PATHOLOGY AND CYTOLOGY AMBULATORY Final Result * MICROALBUMIN/CREATININE RATIO, URINE, RANDOM (11/18/2019 3:39 PM EST) Pathologist [facility] CREATININE, RANDOM URINE 35 mg/dL [facility] MICROALBUMIN, RANDOM 5.6 0.0 - 29.0 mg/L [facility] MICROALB/CRE RATIO RANDOM < 16.0 0.0 - 30.0 mg/G [facility] Urine specimen (specimen) Urine specimen / Unknown 11/18/2019 3:39 PM EST 11/18/2019 8:31 PM EST Narrative [facility] 11/18/2019 9:26 PM EST [employer], [place] [address] Power Shear Operator - Serene Casas MD PT ID [id number] ORD# [id number] [facility] LAB URINE AMBULATORY [place] [address], * HIV-1 & HIV-2 ANTIBODIES (11/05/2019 1:40 PM EST) HIV 1 AND 2 ANTIBODY SCREEN NONREACTIVE NONREACTIVE [facility] Comment: HIV testing performed at reference lab due to reagent backorder. Test performed at: [facility] [address] [place] [address] Nahum Crews MD- Power Shear Operator Blood specimen (specimen) Blood / Unknown 11/05/2019 1:40 PM EST 11/05/2019 1:43 PM EST Narrative [facility] - 11/09/2019 12:01 PM EST [employer], [place] [address] Power Shear Operator - Serene Casas MD PT ID [id number] ORD# [id number] [facility]OOKS LAB - BLOOD DRAW Final Result Performing Organization Address [facility] [address] [facility] [place] [address], * (ABNORMAL) HEPATITIS A,B,C PANEL (06/23/2015 10:16 AM EDT) HEPATITIS B SURFACE ANTIBODY POSITIVE(A) NEGATIVE [facility] HEPATITIS B SURFACE ANTIGEN NEGATIVE NEGATIVE [facility] HEPATITIS C VIRUS DIAGNOSTIC NEGATIVE NEGATIVE [facility] HEPATITIS A ANTIBODY TOTAL NEGATIVE NEGATIVE [facility] HEPATITIS B CORE ANTIBODY NEGATIVE NEGATIVE [facility] Blood specimen (specimen) Blood / Unknown 06/23/2015 10:16 AM EDT 06/23/2015 6:07 PM EDT Narrative [facility] - 06/23/2015 9:06 PM EDT [employer] [address] [place] [address] PT ID [id number] ORD# [id number] Harman Neumann MD LAB - BLOOD DRAW Edited Resu lt - Final Performing Organization Address City/[facility] [address]/ZIP Co de Phone Number [address] [address], from Last 3 Months or Most Recently Relevant to Health Maintenance Insurance [place] [address] [facility] [place] Care Teams Rfid Analyst Relationship Specialty Start Date End Date Valarie Dominguez PA-C [address] [place] [address] PCP - General FAMILY MEDICINEJUNITO 09/13/21
--- OUTSIDE RECORDS SUMMARY | 2025-09-06 19:36 | XMS_ITS | Clinical Summary ---
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 Depression DX:Depression Seasonal allergies DX:Seasonal a llergies Diabetes mellitus (CMS/HCC V 24, CMS/HCC V28) 2019 DX:Diabetes mellitus ([facility]); COMMENT: type 2 Family History Medical History Relation Name Comments Diabetes Father Hypertension Father Hypertension Mother Relation Name Status Comments Father Mother Social History Tobacco Use Types Packs/Day Years Used Date Smoking Tobacco: Former Cigarettes Smokeless Tobacco: Never Alcohol Use Standard Drinks/Week Comments Yes 2.5 (1 standard drink = 0.6 oz p ure alcohol) Comments Unknown Sex and Gender Information Value Date Recorded Sex Assigned at Not on file Legal Sex Female 6:02 PM EST Gender Identity Not on file Sexual Orientation Not on file Obstetrics History Plan of Treatment Health Maintenance Due Date Last Done Comments Hepatitis B Vaccines (1 of 3 - 19+ 3-dose series) 2004 HPV Vaccines (1 - 3-dose SCD M series) 2012 Cervical Cancer Screening: P ap Smear 04/08/2021 04/08/2018 Cholesterol Screening (Lipid Panel) 09/29/2022 HIV Screening 09/29/2022 Hepatitis C Screening 09/29/2022 Social Influencers of Health Screening 09/29/2022 Hypertension/CHF/CAD Annual BMP Blood Test 10/12/2022 Depression Screening 10/28/2024 COVID-19 Vaccine ( - 2023-2 5 season) 2025 Influenza Vaccine (#1) 2025 DTaP,Tdap,and Td Vaccines (2 - Td or Tdap) 06/20/2027 06/20/2017 RSV Immunization Adult Patie nts (1 - 1-dose 75+ series) 2060 HIB Vaccines Aged Out No longer eligi ble based on patient's age to complete this topic Hepatitis A Vaccines Aged Out No long er eligible based on patient's age to complete this topic IPV Vaccines Aged Out No longer eligi ble based on patient's age to complete this topic MMR Vaccines Aged Out No longer eligi ble based on patient's age to complete this topic Meningococcal ACWY Vaccine Aged Out N o longer eligible based on patient's age to complete this topic Meningococcal B Vaccine Aged Out No l onger eligible based on patient's age to complete this topic Pneumococcal Vaccine: Pediat rics (0 to 5 Years) and At-Risk Patients (6 to 49 Years) Aged Out No longer eligi ble based on patient's age to complete this topic RSV Immunization Patients Un srikanth 20 months Aged Out No longer eligible b ased on patient's age to complete this topic Varicella Vaccines Aged Out No longer eligible based on patient's age to complete this topic Procedures Procedure Name Priority Date/Time Associated Diagnosis Comments PAP SMEAR Routine 04/08/2018 from Last 3 Months or Most Recently Relevant to Health Maintenance Results * Pap smear (04/08/2018) 04/08/2018 Narrative HISTORICAL TESTING LAB RESULTING AGENCY - 04/10/2018 12:30 PM EDT [id number] THINPREP PAP, IMAGED: NEGATIVE FOR SQUAMOUS INTRAEPITHELIAL LESION AND MALIGNANCY . RESULT OF APTIMA HIGH RISK HPV ASSAY: NEGATIVE (SEROTYPES 16,18,31,33,35,39,45,51,52,56,58,59,66,68) JOSE VELAZQUEZ(ASCP) (CASE ELECTRONICALLY SIGNED 04 10 2018) ADEQUACY: SATISFACTORY. ENDOCERVICAL/TRANSFORMATION ZONE COMPONENT ABSENT. SOURCE: THINPREP PAP HPV ANY DX: REFLEX 16 AND 18, CERVICAL, IMAGED: CLINICAL INFORMATION: HPV ANY DIAGNOSIS. Z12.4, HORMONES, LMP 03/17/2018 Nata Anderson CN LAB CYTOLOGY ORDERABLES Final Result HISTORICAL TESTING LAB RESULTING AGENCY from Last 3 Months or Most Recently Relevant to Health Maintenance Care Teams Care Transition Coordinator Relationship Specialty Start Date End Date Valarie Dominguez PA [address] [place] [address] PCP - General 12/17/23
[2025-09-06 20:12] LABS: Erythrocyte Sedimentation Rate 30 MM/HR (0-20)
[2025-09-06 20:30] VITALS: BP 152/86; PULSE 80; RESP 16; TEMP 36.5; O2SAT 98
[2025-09-06 20:35] VITALS: BP 152/86; PULSE 80; RESP 16; TEMP 36.5; O2SAT 98
== END 2025-09-06 20:37 | disposition home or self-care (01) ==
PROVIDERS: Physician Assistant Medical; Emergency Provider Emergency Medicine; PCP Dentist General Practice
DX: R51.9 Headache, unspecified (principal); E11.9 Type 2 diabetes mellitus without complications; I10 Essential (primary) hypertension; E78.5 Hyperlipidemia, unspecified; Z79.84 Long term (current) use of oral hypoglycemic drugs; F17.200 Nicotine dependence, unspecified, uncomplicated; Z71.6 Tobacco abuse counseling
CPT/HCPCS: 36415; 80053; 83735; 84443; 84702; 85025; 85652; 86140; 96372; 99284; J1885